=== PATIENT | female | born 1995 | race Caucasian/White ===

== ENCOUNTER 2023-04-07 14:45 | Outpatient (OUT) | payer BC, OTHER, SELFPAY ==
--- NOTE | 2023-04-07 14:48 | US_ITS ---
The [address] [address] Patient Name: NICOLE GALE MRN: [id number] date: 1995 Sex: F Assigned Patient Location: US Current Patient Location: US Accession/Order Number: [id number] Exam Date: 04/07/2023 14:50 Report Date: 04/07/2023 15:58 At the request of: OJ VERAS Procedure: US pelvis transvaginal Examinations: Transvaginal pelvic ultrasound with Doppler on 04/07/2023 2:50 PM EST Clinical Information: Pelvic pain status post IUD placement Comparison: None. FINDINGS: The anteverted uterus measures 8.9 x 3.9 x 4.6 cm. The uterus has a homogeneous echotexture without focal mass . Endometrial stripe is within normal limits for patient's age and measures 9 mm maximal thickness. IUD noted in place. The right ovary measures 4.1 x 2.9 x 3.6 cm and contains a simple cyst measuring up to 3.4 cm, well delineated. No dedicated follow-up is indicated per the 2019 [employer] in Ultras[employer] consensus statement. The left ovary is not visualized. Given the patient's symptoms, color Doppler and duplex interrogation was performed demonstrating arterial and venous flow to the right ovary. Urinary bladder shows no gross abnormality. There is no free fluid or suspicious adnexal mass. US/US pelvis transvaginal IMPRESSION: 1. IUD noted in place. 2. Nonvisualization of the left ovary. 3. Otherwise essentially unremarkable exam as described. Electronically authenticated by: LONA WATERMAN Date: 04/07/2023 15:58
== END 2023-04-07 14:46 | disposition home or self-care (01) ==
LOC: US 14:45
PROVIDERS: Visit Provider Nurse Practitioner
DX: R10.2 Pelvic and perineal pain (principal); T83.84XA Pain due to genitourinary prosthetic devices, implants and grafts, initial encounter
CPT/HCPCS: 76830

== ENCOUNTER 2023-12-02 19:11 | Emergency (ER) | payer OTHER, SELFPAY ==
[2023-12-02 19:17] VITALS: BP 137/92; PULSE 80; TEMP 36.4; O2SAT 99; BMI 26.5
--- OUTSIDE RECORDS SUMMARY | 2023-12-02 19:23 | XMS_ITS | CCD ---
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 motor strength equal & normal bilaterally, sensation equal & normal bilaterally, speech normal Assessment/Plan 1. Swollen gland (R59.9: Enlarged lymph nodes, unspecified) Discussed with patient when lymphadenopathy may occur Encouraged to continue ibuprofen or acetaminophen for discomfort Encouraged to contact dentist f/u as needed Ordered: amoxicillin, 500 mg = 1 cap(s), Oral, q12hr, X 7 day(s), # 14 cap(s), Refills(s) 0, Pharmacy: [facility]/pharmacy #[id number], 172, cm, 05/29/23 11:51:00 EST, Height/Length Dosing, 84, kg, 05/29/23 11:51:00 EST, Weight Dosing 2. Tooth abscess (K04.7: Periapical abscess without sinus) Discussed with patient when lymphadenopathy may occur Encouraged to continue ibuprofen or acetaminophen for discomfort Encouraged to contact dentist f/u as needed Ordered: amoxicillin, 500 mg = 1 cap(s), Oral, q12hr, X 7 day(s), # 14 cap(s), Refills(s) 0, Pharmacy: [facility]/pharmacy #[id number], 172, cm, 05/29/23 11:51:00 EST, Height/Length Dosing, 84, kg, 05/29/23 11:51:00 EST, Weight Dosing 3. BMI 28.0-28.9,adult (Z68.28: Body mass index [BMI] 28.0-28.9, adult) The standard range for ages 18 and older is >=18.5 and < 25 kg/m2. Your BMI today was above this range, this falls in the overweight to obese category and there are medical benefits to weight loss. We can offer counselling, referral, and/or medical support in addressing this problem. Your BMI and weight management will be followed at subsequent visits. Ordered: amoxicillin, 500 mg = 1 cap(s), Oral, q12hr, X 7 day(s), # 14 cap(s), Refills(s) 0, Pharmacy: [facility]/pharmacy #[id number], 172, cm, 05/29/23 11:51:00 EST, Height/Length Dosing, 84, kg, 05/29/23 11:51:00 EST, Weight Dosing Follow-up No qualifying data available Patient Education Dental Abscess, Clvb-ss-Jsaz Lymphadenopathy Problem List/Past Medical History Ongoing Absence of aortic valve leaflet Anxiety Asthma, exercise induced Bicuspid aortic valve BMI 24.0-24.9, adult BMI 28.0-28.9,adult Bronchitis with wheezing Cervical cancer screening Cold sore Encounter for IUD insertion Encounter for routine checking of intrauterine contraceptive device (IUD) Insect bites Intrauterine contraceptive device in situ Left knee pain Left knee sprain Low back pain Menorrhagia Oral herpes simplex infection Radiculopathy Sinusitis Smoker Well woman exam Historical Adult BMI 28.0-28.9 kg/sq m Adult BMI 29.0-29.9 kg/sq m Adult BMI 30.0-30.9 kg/sq m Class 1 obesity with body mass index (BMI) of 30.0 to 30.9 in adult Procedure/Surgical History Tonsillectomy and adenoidectomy (2001). Medications albuterol HFA 90 mcg/inh MDI, 2 puff(s), Inhalation, q4hr, PRN amoxicillin 500 mg Cap, 500 mg= 1 cap(s), Oral, q12hr Mirena 52 mg intrauteral device, 52 mg= 1 EA, IntraUteral, Once triamcinolone Top 0.1% Oint, 1 donaldo, Topical, TID valacyclovir 1 g Tab, See Instructions, 4 refills Allergies No Known Medication Allergies Social History Alcohol Current, Beer, Wine, Liquor, 3-5 times per week, 1 drinks/episode average. 2.00 drinks/episode maximum. Started age 23 Years. Previous treatment: None. Alcohol use interferes with work or home: No. Drinks more than intended: No. Others hurt by drinking: No. Ready to change: No., 05/10/2019 Substance Abuse - Denies Substance Abuse, 05/10/2019 Tobacco - Low Risk, 04/08/2022 Former smoker, quit more than 30 days ago Tobacco Use:. Current vaping or e-cigarette use Smokeless Tobacco Use:. Vaping, Ready to c (more content not included)... Normal [facility] Comment on above: Result Comment: Elec tronically Signed By: JOEY CALDERON CNP\.luis e\Date and Time Signed: 05/29/23 12:24 EST Patient Educationon 05-29-19 Patient Education Dentistry Dental Abscess A dental abscess is an area of pus in or around a tooth. It comes from an infection. It can cause pain and other symptoms. Treatment will help with symptoms and prevent the infection from spreading. What are the causes? This condition is caused by an infection in or around the tooth. This can be from: ? Very bad tooth decay (cavities). ? A bad injury to the tooth, such as a broken or chipped tooth. What increases the risk? The risk to get an abscess is higher in males. It is also more likely in people who: ? Have dental decay. ? Have very bad gum disease. ? Eat sugary snacks between meals. ? Use tobacco. ? Have diabetes. ? Have a weak disease-fighting system (immune system). ? Do not brush their teeth regularly. What are the signs or symptoms? Some mild symptoms are: ? Tenderness. ? Bad breath. ? Fever. ? A sharp, sour taste in the mouth. ? Pain in and around the infected tooth. Worse symptoms of this condition include: ? Swollen neck glands. ? Chills. ? Pus draining around the tooth. ? Swelling and redness around the tooth, the mouth, or the face. ? Very bad pain in and around the tooth. The worst symptoms can include: ? Difficulty swallowing. ? Difficulty opening your mouth. ? Feeling like you may vomit or vomiting. How is this treated? This is treated by getting rid of the infection. Your dentist will discuss ways to do this, including: ? Antibiotic medicines. ? Antibacterial mouth rinse. ? An incision in the abscess to drain out the pus. ? A root canal. ? Removing the tooth. Follow these instructions at home: Medicines ? Take mjrb-eug-sdnlxmd and prescription medicines only as told by your dentist. ? If you were prescribed an antibiotic medicine, take it as told by your dentist. Do not stop taking it even if you start to feel better. ? If you were prescribed a gel that has numbing medicine in it, use it exactly as told. ? Ask your dentist if you should avoid driving or using machines while you are taking your medicine. General instructions ? Rinse your mouth often with salt water. To make salt water, dissolve ??1 tsp (3?6 g) of salt in 1 cup (237 mL) of warm water. ? Eat a soft diet while your mouth is healing. ? Drink enough fluid to keep your pee (urine) pale yellow. ? Do not apply heat to the outside of your mouth. ? Do not smoke or use any products that contain nicotine or tobacco. If you need help quitting, ask your dentist. ? Keep all follow-up visits. Prevent an abscess ? [place] your teeth every morning and every night. Use fluoride toothpaste. ? Floss your teeth each day. ? Get dental cleanings as often as told by your dentist. ? Think about getting dental sealant put on teeth that have deep holes (decay). ? Drink water that has fluoride in it. ? Most tap water has fluoride. ? Check the label on bottled water to see if it has fluoride in it. ? Drink water instead of sugary drinks. ? Eat healthy meals and snacks. ? Wear a mouth guard or face shield when you play sports. Contact a doctor if: ? Your pain is worse and medicine does not help. Get help right away if: ? You have a fever or chills. ? Your symptoms suddenly get worse. ? You have a very bad headache. ? You have problems breathing or swallowing. ? You have trouble opening your mouth. ? You have swelling in your neck or close to your eye. These symptoms may be an emergency. Get help right away. Call your local emergency services (911 in the [place] ? Do not wait to see if the symptoms will go away. ? Do not drive yourself to the hospital. Summary ? A dental abscess is an area of pus in or around a tooth. It is caused by an infection. ? Treatment will help with symptoms and prevent the infection from spreading. ? Take zrvb-grq-opnnqap and prescription medicines only as told by your dentist. ? To prevent an abscess, take good care of your teeth. [place] your teeth every morning and night. Use floss every day. ? Get dental cleanings as often as told by your dentist. This information is not intended to replace advice given to you by your health care provider. Make sure you discuss any questions you have with your health care provider. Document Revised: 05/17/2021 Document Reviewed: 05/17/2021 [employer] Patient Education ? 2022 [employer] Infectious Disease Lymphadenopathy Lymphadenopathy means that your lymph glands are swollen or larger than normal. Lymph glands, also called lymph nodes, are collections of tissue that filter excess fluid, bacteria, viruses, and waste from your bloodstream. They are part of your body's disease-fighting system (immune system), which protects your body from germs. There may be different causes of lymphadenopathy, depending on where it is in your body. Some types go away on their own. Lymphadenopathy can occur anywhere that you have lymph glands, (more content not included)... Normal [facility] ECG 12-Leadon 04-28-2023 ECG 12-Lead [id number]# 1.00TIFF Normal [facility] Heart and Vascular Office/Cl inic Noteon 04-28-2023 Heart and Vascular Office/Clinic Note Chief Complaint here to establish care History of Present Illness Nicole Gale is a 27-year-old female who presents today for a new patient evaluation. The patient is doing well. She was born with a heart murmur. She is unsure if her heart murmur has resolved or not. The last time she saw a labor relations teacher was 5 years ago for a cardiac MRl. She has worn a Holter monitor 5 years ago. She denies chest pain, swelling, palpitations, or irregular heartbeat. She was very active in high school and had an athletic induced asthma. She has continuous symptoms of asthma. She experiences dyspnea on exertion, particularly doing long cardio exercises at the gym. She is supposed to have an appointment with a labor relations teacher every 2 years. Review of Systems Constitutional: no fever, no sweats, no weakness Skin: no rash, no lesions, no bruising/petechiae ENMT: no sore throat, no congestion, no hoarseness Respiratory: Positive for shortness of breath, positive for asthma, no cough, no orthopnea, no wheezing Cardiovascular: no chest pain, no palpitations, no edema Gastrointestinal: no nausea, no vomiting, no diarrhea, no GI bleeding Genitourinary: no anuria/oliguria no hematuria Musculoskeletal: no back pain, no trauma Neurologic: no headache, no dizziness, no numbness, no weakness Psychiatric: no sleeping problems, no irritability, no anxiety/depression. Heme/Lymph: no bleeding tendency, no bruising tendency Allergy/Immunologic: no recurrent infections, no impaired immunity Additional ROS info: Except as noted in the above Review of Systems and in the History of Present Illness all other systems have been reviewed and are negative or noncontributory Physical Exam Vitals & Measurements HR: 79(Peripheral) BP: 118/68 SpO2: 100% HT: 68 in HT: 172 cm WT: 84.1 kg WT: 185.02 lb BMI: 28.43 General: alert, no acute distress Skin: warm, dry intact Head: atraumatic, normocephalic Neck: trachea midline, no JVD, no bruit Eye: normal conjunctiva, sclera clear ENMT: oral mucosa moist Cardiovascular: She has multiple extra beats and a diastolic murmur and a loud P2. Respiratory: lungs CTA, respirations non labored Chest wall: no deformity. Gastrointestinal: soft, non-distended, no tenderness, no guarding. Back: no tenderness, normal ROM, normal alignment. Extremities: no edema, no deformity, no trauma Neurological: oriented x 4, LOC appropriate for age, sensation equal & normal bilaterally, speech normal Psychiatric: cooperative, affect appropriate for age, normal judgement, normal psychiatric thoughts. Assessment/Plan 1. Aortic Valve Disease Nicole Gale is a 27-year-old female with a history of congenital aortic valve disease of unclear etiology. It was previously considered as unicuspid aortic valve, but appeared to be bicuspid aortic valve on MRI 5 years ago. She is doing well, but had not recently followed up. She needs a reassessment. We will get a transthoracic echo and a 48-hour Holter monitor as EKG has some PACs and auscultation. On exam, she has multiple extra beats. Additionally, I do hear a diastolic murmur and a loud P2. Follow up in 6 weeks in [place]. Documentation services were performed after patient or guardian consented to allow [employer] to record this visit. PATRICIA geospatial specialist and provider reviewed before signing. PATRICIA: Phoebe Roberta Oseo. Portions of this record may have been created with voice recognition artificial intelligence software, specifically [employer], [employer] and or [employer]. Substitutions may have occurred due to the inherent limitations of voice recognition and artificial intelligence software. Follow-up No qualifying data available Problem List/Past Medical History Ongoing Absence of aortic valve leaflet Anxiety Asthma, exercise induced Bicuspid aortic valve BMI 24.0-24.9, adult Bronchitis with wheezing Cervical cancer screening Cold sore Encounter for IUD insertion Encounter for routine checking of intrauterine contraceptive device (IUD) Insect bites Left knee pain Left knee sprain Low back pain Menorrhagia Oral herpes simplex infection Radiculopathy Sinusitis Smoker Well woman exam Historical Adult BMI 28.0-28.9 kg/sq m Adult BMI 29.0-29.9 kg/sq m Adult BMI 30.0-30.9 kg/sq m Class 1 obesity with body mass index (BMI) of 30.0 to 30.9 in adult Procedure/Surgical History Tonsillectomy and adenoidectomy (2001). Medications albuterol HFA 90 mcg/inh MDI, 2 puff(s), Inhalation, q4hr, PRN Mirena 52 mg intrauteral device, 52 mg= 1 EA, IntraUteral, Once triamcinolone Top 0.1% Oint, 1 donaldo, Topical, TID valacyclovir 1 g Tab, See Instructions, 4 refills Allergies No Known Medication Allergies Social History Alcohol Current, Beer, Wine, Liquor, 3-5 times per week, 1 drinks/episode average. 2.00 drinks/episode maximum. Started age 23 Years. Previous treatment: None. Alcohol use interferes with (more content not included)... [facility] Comment on above: Result Comment: Elec tronically Signed By: Pieter Ying MD\.br\Date and Time Signed: 04/28/23 09:29 EST\.br\Electronically Co-Signed By: Anuja Carvalho\.br\Date and Time Co-Signed: 04/25/23 16:33 EST Physician Orderon 04-28-2023 Physician Order [id number]# 1.00TIFF [facility] Ambulatory Visit Summaryon 0 04-25-2023 Ambulatory Visit Summary NICOLE GALE :1995 Visit Date:04/25/2023 Ambulatory Visit Instructions Your Diagnosis Angina of effort Your Care Team Attending Physician - Pieter Ying MD Primary Care Physician - Monique Navarro Referring Physician - Monique Navarro This Is Your Medications List albuterol (albuterol HFA 90 mcg/inh MDI) levonorgestrel (Mirena 52 mg intrauteral device) triamcinolone topical (triamcinolone Top 0.1% Oint) valacyclovir (valacyclovir 1 g Tab) Procedures Performed Tonsillectomy and adenoidectomy (2001). Discharge Vitals Heart Rate (Peripheral) 79 Blood Pressure 118/68 Height 172 cm Height 68 in Weight 84.1 kg Weight 185.02 lb BMI 28.43 What to do next Scheduled Follow-Up Appointments Friday 1:15 PM EDT With: Deonna FELDMAN, Pieter Li Where: [facility] [place] Medications What How Much When Instructions Unchanged albuterol (albuterol HFA 90 mcg/ inh MDI) 2 Puffs Inhalation Every 4 hours as needed for for wheezing Unchanged levonorgestrel (Mirena 52 mg intrauteral device) 1 Each Intrauteral Once Duration: 1 Doses Unchanged triamcinolone topical (triamcinolone Top 0.1% Oint) 1 Application Topical 3 times a day Unchanged valacyclovir (valacyclovir 1 g Tab) See instructions TAKE 2 TABLETS BY MOUTH TWICE A DAY FOR 1 DAY Allergies No Known Medication Allergies Problems Ongoing - Any problem that you are currently receiving treatment for. Absence of aortic valve leaflet Anxiety Asthma, exercise induced Bicuspid aortic valve BMI 24.0-24.9, adult Bronchitis with wheezing Cervical cancer screening Cold sore Encounter for IUD insertion Encounter for routine checking of intrauterine contraceptive device (IUD) Insect bites Left knee pain Left knee sprain Low back pain Menorrhagia Oral herpes simplex infection Radiculopathy Sinusitis Smoker Well woman exam Historical - Any problem that you are no longer receiving treatment for. Adult BMI 28.0-28.9 kg/sq m Adult BMI 29.0-29.9 kg/sq m Adult BMI 30.0-30.9 kg/sq m Class 1 obesity with body mass index (BMI) of 30.0 to 30.9 in adult Patient Survey You may receive a survey via text or e-mail asking about your office visit. Please share your experience with us by completing your survey. We appreciate your feedback and thank you for choosing us for your care. [facility] Ambulatory Visit Summary NICOLE GALE :1995 Visit Date:04/25/2023 Ambulatory Visit Instructions Your Diagnosis BMI 28.0-28.9,adult Former smoker Your Care Team Attending Physician - Monique Navarro Primary Care Physician - Monique Navarro This Is Your Medications List albuterol (albuterol HFA 90 mcg/inh MDI) levonorgestrel (Mirena 52 mg intrauteral device) triamcinolone topical (triamcinolone Top 0.1% Oint) valacyclovir (valacyclovir 1 g Tab) Procedures Performed Tonsillectomy and adenoidectomy (2001). Discharge Vitals Heart Rate (Peripheral) 78 Respiratory Rate 18 Blood Pressure 110/80 Height 172 cm Height 68 in Weight 84.9 kg Weight 186.78 lb BMI 28.7 Medications What How Much When Instructions Unchanged albuterol (albuterol HFA 90 mcg/ inh MDI) 2 Puffs Inhalation Every 4 hours as needed for for wheezing Unchanged levonorgestrel (Mirena 52 mg intrauteral device) 1 Each Intrauteral Once Duration: 1 Doses Unchanged triamcinolone topical (triamcinolone Top 0.1% Oint) 1 Application Topical 3 times a day Unchanged valacyclovir (valacyclovir 1 g Tab) See instructions TAKE 2 TABLETS BY MOUTH TWICE A DAY FOR 1 DAY Allergies No Known Medication Allergies Problems Ongoing - Any problem that you are currently receiving treatment for. Absence of aortic valve leaflet Anxiety Asthma, exercise induced Bicuspid aortic valve BMI 24.0-24.9, adult Bronchitis with wheezing Cervical cancer screening Cold sore Encounter for IUD insertion Insect bites Left knee pain Left knee sprain Low back pain Menorrhagia Oral herpes simplex infection Radiculopathy Sinusitis Smoker Well woman exam Historical - Any problem that you are no longer receiving treatment for. Adult BMI 28.0-28.9 kg/sq m Adult BMI 29.0-29.9 kg/sq m Adult BMI 30.0-30.9 kg/sq m Class 1 obesity with body mass index (BMI) of 30.0 to 30.9 in adult Patient Survey You may receive a survey via text or e-mail asking about your office visit. Please share your experience with us by completing your survey. We appreciate your feedback and thank you for choosing us for your care. [facility] [place] 04-25-2023 Consent [id number] .00TIFF [facility] Family Medicine Office/Clini c Noteon 04-25-2023 Family Medicine Office/Clinic Note HPI Staff Nicole is a 27 year old female presenting for IUD String check pt had Mirana placed on 03/21/23 and is here to have string checked. Pt states she has been feeling good and denies any pain or discomfort. History of Present Illness pt presents today for IUD string check Review of Systems PHQ Score Initial Depression Screen Score: 0 SCORE ROS - Provider Constitutional: no fever, no chills, no sweats, no fatigue Respiratory: no shortness of breath, no cough, no orthopnea, no wheezing. Cardiovascular: no chest pain, no palpitations, no edema. Neurologic: no headache, no dizziness, no numbness, no weakness. Physical Exam Vitals & Measurements HR: 78(Peripheral) RR: 18 BP: 110/80 SpO2: 99% HT: 68 in HT: 172 cm WT: 84.9 kg WT: 186.78 lb BMI: 28.7 General: alert, no acute distress ENMT: oral mucosa moist, no pharyngeal erythema or exudate Cardiovascular: regular rate and rhythm, normal peripheral perfusion Respiratory: Lungs CTA, respirations non labored Extremities: no deformity, no trauma Neurological: oriented x 4, LOC appropriate for age, CN II-XII intact, motor strength equal & normal bilaterally, speech normal IUD strings visible strings do not need trimmed Assessment/Plan 1. Encounter for routine checking of intrauterine contraceptive device (IUD) (Z30.431: Encounter for routine checking of intrauterine contraceptive device) IUD strings in place. U/S results reviewed. pt states the cramping is no longer an issue. and she is just having minimal spotting. RTC as needed 2. BMI 28.0-28.9,adult (Z68.28: Body mass index [BMI] 28.0-28.9, adult) BMI education complete 3. Former smoker (Z87.891: Personal history of nicotine dependence) continue not smoking Follow-up No qualifying data available Problem List/Past Medical History Ongoing Absence of aortic valve leaflet Anxiety Asthma, exercise induced Bicuspid aortic valve BMI 24.0-24.9, adult Bronchitis with wheezing Cervical cancer screening Cold sore Encounter for IUD insertion Encounter for routine checking of intrauterine contraceptive device (IUD) Insect bites Left knee pain Left knee sprain Low back pain Menorrhagia Oral herpes simplex infection Radiculopathy Sinusitis Smoker Well woman exam Historical Adult BMI 28.0-28.9 kg/sq m Adult BMI 29.0-29.9 kg/sq m Adult BMI 30.0-30.9 kg/sq m Class 1 obesity with body mass index (BMI) of 30.0 to 30.9 in adult Procedure/Surgical History Tonsillectomy and adenoidectomy (2001). Medications albuterol HFA 90 mcg/inh MDI, 2 puff(s), Inhalation, q4hr, PRN Mirena 52 mg intrauteral device, 52 mg= 1 EA, IntraUteral, Once triamcinolone Top 0.1% Oint, 1 donaldo, Topical, TID valacyclovir 1 g Tab, See Instructions, 4 refills Allergies No Known Medication Allergies Social History Alcohol Current, Beer, Wine, Liquor, 3-5 times per week, 1 drinks/episode average. 2.00 drinks/episode maximum. Started age 23 Years. Previous treatment: None. Alcohol use interferes with work or home: No. Drinks more than intended: No. Others hurt by drinking: No. Ready to change: No., 05/10/2019 Substance Abuse - Denies Substance Abuse, 05/10/2019 Tobacco - Low Risk, 04/08/2022 Former smoker, quit more than 30 days ago Tobacco Use:. Never, Current vaping or e-cigarette use Smokeless Tobacco Use:. Cigarettes, Vaping, Ready to change: No. Household tobacco concerns: No. Yes, 04/25/2023 Family History ADHD: Brother. Bipolar: Sister. Thyroid condition: Mother. Immunizations Vaccine Date Status Comments influenza virus vaccine, inactivated - Not Given Patient Refuses influenza virus vaccine, inactivated - Not Given Patient Refuses SARS-CoV-2 (COVID-19) mRNA BNT-162b2 vax 09/14/2020 Recorded SARS-CoV-2 (COVID-19) mRNA BNT-162b2 vax 08/24/2020 Recorded influenza virus vaccine, live, trivalent - Not Given Patient Refuses diphtheria/pertussis, acel/tetanus adult 01/03/2010 Recorded meningococcal conjugate vaccine 01/03/2010 Recorded human papillomavirus vaccine 01/03/2010 Recorded poliovirus vaccine, inactivated 06/07/2002 Recorded DTaP, unspecified formulation 06/07/2002 Recorded varicella virus vaccine 08/11/2001 Recorded measles/mumps/rubella virus vaccine 08/11/2001 Recorded Normal [facility] Comment on above: Result Comment: Elec tronically Signed By: Iwona FONSECA, Monique Clement\.br\Date and Time Signed: 04/25/23 14:19 EST RAD - Ultrasound Reporton RAD - Ultrasound Report [id number]. 00TIFF Normal [facility] Physician Orderon 04-02-2023 Physician Order [id number] .00TIFF Normal [facility] Ambulatory Visit Summaryon 1 Ambulatory Visit Summary NICOLE GALE :1995 Visit Date:03/21/2023 Ambulatory Visit Instructions Your Diagnosis Encounter for IUD insertion BMI 29.0-29.9,adult Vaping nicotine dependence, tobacco product Your Care Team Attending Physician - Monique Navarro Primary Care Physician - Monique Navarro This Is Your Medications List albuterol (albuterol HFA 90 mcg/inh MDI) triamcinolone topical (triamcinolone Top 0.1% Oint) valacyclovir (valacyclovir 1 g Tab) Procedures Performed Tonsillectomy and adenoidectomy (2001). What to do next Scheduled Follow-Up Appointments Friday 1:40 PM EST With: Monique Navarro Where: [facility] Family Medicine [place] Normal [facility] Reminderson 03-06-2023 Reminders - From: Monique Navarro To: [facility] - Clinical; Sent: 03/05/2023 13:08:41 EST Show up: 03/05/2023 13:09:00 EST Subject: Ambulatory Reminder Due Date/Time: 03/06/2023 13:08:00 EST Let nicole know her pap results were negative Results: Date Result Name Value 02/27/2023 8:50 PAP Note notified patient of message below Normal [facility] PAP [id number] 03-04-2023 Cytology report Cyto stain Doc (Cvx/Vag) Note Invalid Interpretation Code [facility]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 pressure 124 mm[Hg] Anastasia GOMES [facility] Encounters Encounter Date Encounter Type Care Provider Facility Start: 06-13-2023 End: 06-13-2023 ambulatory Pieter Ying Facility:[facility] Start: 06-13-2023 End: 06-13-2023 Patient encounter procedure Pieter Ying [facility] Start: 06-06-2023 End: 06-06-2023 ambulatory Pieter Ying Facility:[facility] Start: 06-06-2023 End: 06-06-2023 Patient encounter procedure Pieter Ying [facility] Start: 05-29-2023 End: 05-29-2023 ambulatory Pieter Ying Facility:[facility] Start: 05-29-2023 End: 05-29-2023 Patient encounter procedure Pieter Ying [facility] Start: 05-29-2023 End: 05-29-2023 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 Facility:[facility] [place] Start: 04-25-2023 End: 04-25-2023 Patient encounter procedure Pieter Ying [facility] Start: 04-25-2023 End: 04-25-2023 ambulatory Monique L Iwona Facility:[facility] Start: 03-21-2023 End: 03-21-2023 ambulatory Monique L Iwona Facility:[facility] [place] Start: 02-27-2023 End: 02-27-2023 Lab Drop off Monique L Iwona [facility] Start: 02-27-2023 End: 02-27-2023 ambulatory Monique L Iwona Facility:[facility] Start: 02-05-2023 End: 02-05-2023 ambulatory Monique L Iwona Facility:[facility] [place] Start: 01-31-2023 End: 01-31-2023 ambulatory Monique L Iwona Facility: [facility] Start: 05-01-2022 End: 05-01-2022 Patient encounter procedure NATHALIE Chaidez MARIANNGER [facility] Start: 04-08-2022 End: 04-08-2022 Patient encounter procedure NATHALIE Chaidez SIDEGER [facility] [place] Start: 02-19-2022 End: 02-19-2022 Patient encounter procedure NATHALIE Chaidez SIDEGER [facility] Start: 12-13-2021 ambulatory Provider Pending Facili ty: Start: 12-06-2021 End: 12-06-2021 Patient encounter procedure Elaine Nicholson [facility] Start: 11-02-2021 End: 11-02-2021 Patient encounter procedure Elaine Nicholson [facility] Start: 10-25-2021 End: 10-25-2021 ambulatory Wood Olexa Other [facility] Other Start: 10-25-2021 Office outpatient visit 25 minutes Wood Olexa [facility] Start: 10-04-2021 End: 10-04-2021 ambulatory Wood Olexa Other [facility] Other Start: 10-04-2021 Office outpatient visit 25 minutes Wood Olexa [facility] Start: 09-26-2021 End: 09-26-2021 ambulatory Wood Olexa Other [facility] Other Start: 09-26-2021 Telephone encounter Wood Olexa [facility] Start: 09-18-2021 End: 09-18-2021 ambulatory Wood Olexa Other [facility] Other Start: 09-18-2021 Office outpatient ne w 30 minutes Wood Olexa [facility] Start: 09-13-2021 End: 09-13-2021 Patient encounter procedure Yandy Anand [facility] Start: 09-11-2021 End: 09-11-[address] VIMAL MONIQUE Facility:[facility] Start: 08-23-2021 End: 08-23-2021 Patient encounter procedure Anastasia GOMES [facility] Start: 11-22-2016 Ambulatory AUDIE VALERIO Facility :3 Procedures Date Procedure Procedure Detail Performing Clinician Start: 03-24-2001 Tonsillectomy and adenoidectomy Anastasia GOMES Immunizations Immunization Date Immunization Notes Care Provider Nina barbosa 09-14-2020 SARS-CoV-2 (COVID-19 ) mRNA BNT-162b2 vax Anastasia ALONSOEL [facility] 08-24-2020 SARS-CoV-2 (COVID-19 ) mRNA BNT-162b2 vax Anastasia GOMES [facility] 01-03-2010 HPV, unspecified formulation Anastasia GOMES [facility] 01-03-2010 meningococcal ACWY vaccine, unspecified formulation Anastasiarj GOMES [facility] 01-03-2010 tetanus toxoid, redu clarke diphtheria toxoid, and acellular pertussis vaccine, adsorbed Anastasia GOMES [facility] 06-07-2002 DTaP, unspecified formulation Anastasia GOMES [facility] 06-07-2002 poliovirus vaccine, unspecified formulation Anastasia GOMES [facility] 08-11-2001 measles, mumps and rubella virus vaccine Anastasia ALONSOEL [facility] 08-11-2001 varicella virus vaccine Olivia mart LeukoDxSATISH [facility] NEGATED: Highlighted row has not occurred!04-08-2022 influenza virus vaccine, unspecified formulation NATHALIE ROUSE [facility] [place] NEGATED: Highlighted row has not occurred!08-23-2021 influenza virus vaccine, unspecified formulation Anastasia GOMES [facility] NEGATED: Highlighted row has not occurred!05-10-2019 influenza virus vaccine, live, attenuated, for intranasal use Anastasia GOMES [facility] Payers Date Payer Category Payer Unknown [id number] 1995 Unknown [id number] 2.16.84 [id number] 1997 Unknown [id number] 2.16. [id number] 1997 Unknown [id number] 2.16.8 [id number] 1997 Unknown [id number] 2.16.8 [id number] 1997 Unknown [id number] 2.16.8 [id number] 1997 Unknown [id number] 2.16.8 [id number] 1997 Unknown [id number] 2.16.8 [id number] 1997 Unknown [id number] 2.16.8 [id number] 1997 Unknown [id number] 2.16.8 [id number] 1997 Unknown [id number] 2.16.8 [id number] 1997 Unknown [id number] 2.16.8 [id number] 1997 Unknown [id number] 2.16.8 [id number] 1997 Unknown [id number] 2.16.8 [id number] 1959 Unknown [id number] Social History Date Type Detail Facility Start: 06-14-2019 End: 02-27-2023 Tobacco smoking status Light tobacco smoker (finding) [facility] Tobacco smoking status Never Khris [facility] Sex Assigned At Female [facility] Start: 04-25-2023 End: 05-29-2023 Tobacco smoking status Ex-smoker (finding) [facility] Functional Status Date Assessment Result Facility 06-13-2023 Functional Status N/A [facility] 04-25-2023 Functional Status N/A [facility] 04-08-2022 Functional Status N/A [facility] [place] 02-19-2022 Functional Status N/A [facility] 09-13-2021 Functional Status N/A [facility] Clinical Notes 08-23-2021 to 07-01-2023 Note Date & Type Note Facility 07-01-2023 Note Holter Monitor PROCEDURE: 48-hour Holter monitor. REFERRING PHYSICIAN: Pieter Ying M.D. INDICATIONS: Premature atrial complexes. PROCEDURE DETAILS: The patient was recorded for 2 days capturing an average heart rate of 90 beats per minute, minimum heart rate of 56 beats per minute, and maximum heart rate of beats per minute. There were no ectopic beats. The patient had tachycardia 4.78% of the time. There was no atrial fibrillation or atrial flutter. CONCLUSIONS: Normal Holter monitor. Clinical correlation suggested. READ BY: Pieter Ying M.D. ca Dictated: 06/24/2023 [id number] Transcribed: 06/29/2023 [facility] Comment on above: Result Comment: Elec tronically Signed By: Pieter Ying MD\.br\Date and Time Signed: 07/01/23 08:16 EDT 06-03-2023 Note Echocardiology Procedure Exam Date/Time Accession # [id number] Echo Transthoracic 05/29/2023 15:56 EST [id number] Pieter Ying MD CPT code [id number] Reason for Exam (Echo Transthoracic Complete) Congenital insufficiency of aortic valve;Other (please specify) Report Version: 1 Study ID: [id number] [facility] [address] [place] [address] Adult Echocardiogram Report Name: NICOLE GALE Study Date: 05/29/2023, 3: 02 PM Patient Location: [facility] : 1995 (MM/DD/YYYY) Gender: Female Age: 27 Years Height: 172.72 cm BP: 112 / 55 mmHg Weight: 84.823 kg HR: 55 bpm BSA: 1.99 m? Ordering Physician: Pieter Ying Referring Physician: Pieter Ying Performed By: Rajani Kruger CHRSI Reason For Study: Bicuspid AoV History: Bicuspid AoV, AI, Murmur, Smoker Interpretation Summary Ejection Fraction = 60-65%. Normal LV and RV. Bicuspid aortic valve with mild AI and no . Normal estimated PA pressure. Normal diastolic filling pattern. Procedure A complete two-dimensional transthoracic echocardiogram was performed (2D, M-mode, spectral and color flow Doppler). Study quality is good. Left Ventricle The left ventricle is normal in size. There is normal left ventricular wall thickness. Ejection Fraction = 60-65%. The left ventricular wall motion is normal. Normal diastolic function. Left Atrium The left atrial size is normal. Echocardiology Report Right Atrium Right atrial size is normal. Right Ventricle The right ventricular systolic function is normal. The right ventricle is normal size. The right ventricular wall motion is normal. Aortic Valve The aortic valve is bicuspid. Mild aortic regurgitation. There is no aortic stenosis. Mitral Valve The mitral valve is normal in structure and function. There is no mitral regurgitation noted. No mitral valve stenosis. Tricuspid Valve Structurally normal tricuspid valve. No evidence of tricuspid regurgitation. Pulmonic Valve No evidence of stenosis. There is no pulmonic valve regurgitation. Arteries The aortic root is normal in size. Normal ascending aorta. Pulmonary artery diameter is normal. Venous The inferior vena cava is normal in size, and collapses normally with respiration. Effusion There is no pericardial effusion. Left Ventricle IVSd: 1.00 cm LVIDd: 4.0 cm LVPWd: 1.15 cm LVIDs: 2.8 cm EDV(MOD-sp4): 120.0 ml LVLd ap4: 9.5 cm ESV(MOD-sp4): 36.2 ml LVLs ap4: 7.7 cm EDV(MOD-sp2): 103.0 ml LVLd ap2: 9.3 cm ESV(MOD-sp2): 33.0 ml LVLs ap2: 7.9 cm Right Ventricle TAPSE: 2.34 cm Aortic Valve LVOT diam: 2.45 cm AI max jose: 453.0 cm/sec AI max P.1 mmHg AI dec slope: 223.0 cm/sec? LV V1 max: 79.3 cm/sec LV V1 max P.5 mmHg Ao max P.6 mmHg Ao V2 max: 170.6 cm/sec Tricuspid Valve TR max P.3 mmHg TR max jose: 230.8 cm/sec Aorta Ao root diam: 2.40 cm Ao Sinus of Valsalva: 2.24 cm Ao Sinotubular Junction: 1.94 cm Atria LA dimension: 3.1 cm Diastolic funtion Med Peak E' Jose: 15.9 cm/sec Lat Peak E' Jose: 14.7 cm/sec Echocardiology Report MV dec time: 0.19 sec MV E max jose: 96.1 cm/sec MV A max jose: 44.1 cm/sec AI dec slope: 223.0 cm/sec? AI max P.1 mmHg AI max jose: 453.0 cm/sec AI P1/2t: 595.0 msec Ao max P.6 mmHg Ao root area: 4.5 cm? Ao root diam: 2.40 cm Ao Sinus of Valsalva: 2.24 cm Ao Sinotubular Junction: 1.94 cm Ao V2 max: 170.6 cm/sec AV VR: 0.46 DAPHNE(V,D): 2.19 cm? EDV(MOD-sp4): 120.0 ml EDV(Teich): 68.1 ml EF(MOD-sp4): 69.8 % EF(Teich): 57.0 % ESV(MOD-sp4): 36.2 ml ESV(Teich): 29.3 ml FS: 29.4 % IVC Diam: 1.42 cm IVSd: 1.00 cm LA dimension: 3.1 cm LV V1 max: 79.3 cm/sec LV V1 max P.5 mmHg LVIDd: 4.0 cm LVIDs: 2.8 cm LVLd ap4: 9.5 cm LVLs ap4: 7.7 cm LVOT area: 4.7 cm? LVOT diam: 2.45 cm LVPWd: 1.15 cm MV A max jose: 44.1 cm/sec MV dec time: 0.19 sec MV E max jose: 96.1 cm/sec MV E/A: 2.18 RAP systole: 3.0 mmHg RVDd: 3.4 cm RVIDd/LVIDd: 0.87 RVSP(TR): 24.3 mmHg SV(MOD-sp4): 83.8 ml TAPSE: 2.34 cm TR max P.3 mmHg TR max jose: 230.8 cm/sec E/E' Lat: 6.5 E/E' Med: 6.1 EDV(MOD-sp2): 103.0 ml EF (MOD-bp): 68.4 % EF(MOD-sp2): 68.0 % ESV(MOD-sp2): 33.0 ml LA Vol Index: 20.2 ml/m? Echocardiology Report Lat Peak E' Jose: 14.7 cm/sec LVLd ap2: 9.3 cm LVLs ap2: 7.9 cm Med Peak E' Jose: 15.9 cm/sec Electronically signed by: Pieter Ying MD 06/03/2023, 10: 13 AM FINAL REPORT Dictated: 05/29/2023 3:02 pm Pieter Ying MD Signed (Electronic Signature): 06/03/2023 10:13 am Signed by: Pieter Ying MD Transcribed by: MAKENZIE Technologist: CARI Rosales [facility] 03-25-2023 Note HPI Staff Nicole is a 27 year old female presenting for IUD placement Procedure: IUD insertion IUD type: [x_] Mirena ? [_] Paraguard ? [_] Fatmata ? [x] Kyleena ? Denies any chance of being , pt states she is lesbian. History of Present Illness pt present today for Mirena IUD insertion. test deferred due to pt sexual orientation Review of Systems ROS - Provider Constitutional: no fever, no chills, no sweats, no fatigue Respiratory: no shortness of breath, no cough, no orthopnea, no wheezing. Cardiovascular: no chest pain, no palpitations, no edema. Neurologic: no headache, no dizziness, no numbness, no weakness. menorrhagia Physical Exam General: alert, no acute distress ENMT: oral mucosa moist, no pharyngeal erythema or exudate Cardiovascular: regular rate and rhythm, normal peripheral perfusion Respiratory: Lungs CTA, respirations non labored Extremities: no deformity, no trauma Neurological: oriented x 4, LOC appropriate for age, CN II-XII intact, motor strength equal & normal bilaterally, speech normal Procedure Time out complete. pt in lithotomy position. Bimanual exam performed. speculum was placed. Vagina and cervix cleansed with Betadine. sterile technique maintained through entire procedure. A single toothed tenaculum was applied to anterior lip of cervix and gentle traction applied to straighten and stabilize it. The depth of the uterus was sounded to be of appropriate depth 6cm. cervical dilators were used to help open cervical os. With gentle traction on the tenaculum the IUD was inserted to the appropriate depth and deposited by withdrawing on the insertion tube holding the abeba steady. The string was cut. bleeding was minimal pt tolerated well. standard post procedure care discussed. Assessment/Plan 1. Encounter for IUD insertion (Z30.430: Encounter for insertion of intrauterine contraceptive device) cervical dilators were used to dilate cervical os. IUD inserted without difficulty see procedure note for details. pt to return in April for string check. pt tolerated procedure well. all questions answered. card with IUD information and removal date provided. RTC 4 weeks 2. BMI 29.0-29.9,adult (Z68.29: Body mass index [BMI] 29.0-29.9, adult) BMI education complete 3. Vaping nicotine dependence, tobacco product (F17.290: Nicotine dependence, other tobacco product, uncomplicated) consider not vaping Follow-up No qualifying data available Problem List/Past Medical History Ongoing Absence of aortic valve leaflet Anxiety Asthma, exercise induced Bicuspid aortic valve BMI 24.0-24.9, adult Bronchitis with wheezing Cervical cancer screening Cold sore Encounter for IUD insertion Insect bites Left knee pain Left knee sprain Low back pain Menorrhagia Oral herpes simplex infection Radiculopathy Sinusitis Smoker Well woman exam Historical Adult BMI 28.0-28.9 kg/sq m Adult BMI 29.0-29.9 kg/sq m Adult BMI 30.0-30.9 kg/sq m Class 1 obesity with body mass index (BMI) of 30.0 to 30.9 in adult Procedure/Surgical History Tonsillectomy and adenoidectomy (2001). Medications albuterol HFA 90 mcg/inh MDI, 2 puff(s), Inhalation, q4hr, PRN triamcinolone Top 0.1% Oint, 1 donaldo, Topical, TID valacyclovir 1 g Tab, See Instructions, 4 refills Allergies No Known Medication Allergies Social History Alcohol Current, Beer, Wine, Liquor, 3-5 times per week, 1 drinks/episode average. 2.00 drinks/episode maximum. Started age 23 Years. Previous treatment: None. Alcohol use interferes with work or home: No. Drinks more than intended: No. Others hurt by drinking: No. Ready to change: No., 05/10/2019 Substance Abuse - Denies Substance Abuse, 05/10/2019 Tobacco - Low Risk, 04/08/2022 Former smoker, quit more than 30 days ago Tobacco Use:. Never, Current vaping or e-cigarette use Smokeless Tobacco Use:. Cigarettes, Vaping, Ready to change: No. Household tobacco concerns: No. Yes, 03/21/2023 Family History ADHD: Brother. Bipolar: Sister. Thyroid condition: Mother. Immunizations Vaccine Date Status Comments influenza virus vaccine, inactivated - Not Given Patient Refuses influenza virus vaccine, inactivated - Not Given Patient Refuses SARS-CoV-2 (COVID-19) mRNA BNT-162b2 vax 09/14/2020 Recorded SARS-CoV-2 (COVID-19) mRNA BNT-162b2 vax 08/24/2020 Recorded influenza virus vaccine, live, trivalent - Not Given Patient Refuses diphtheria/pertussis, acel/tetanus adult 01/03/2010 Recorded meningococcal conjugate vaccine 01/03/2010 Recorded human papillomavirus vaccine 01/03/2010 Recorded poliovirus vaccine, inactivated 06/07/2002 Recorded DTaP, unspecified formulation 06/07/2002 Recorded varicella virus vaccine 08/11/2001 Recorded measles/mumps/rubella virus vaccine 08/11/2001 Recorded [facility] Comment on above: Result Comment: Elec tronically Signed By: Monique Navarro\.br\Date and Time Signed: 03/25/23 09:49 EST 04-08-2022 Hospital Discharg e instructions Patient Education 04/08/2022 12:31:57 Budget-Friendly Healthy Eating Budget-Friendly Healthy Eating There are many ways to save money at the grocery store and continue to eat healthy. You can be successful if you: Plan meals according to your budget. Make a grocery list and only purchase food according to your grocery list. Prepare food yourself. What are tips for following this plan? Reading food labels Compare food labels between brand name foods and the store brand. Often the nutritional value is the same, but the store brand is lower cost. Look for products that do not have added sugar, fat, or salt (sodium). These often cost the same but are healthier for you. Products may be labeled as: ?Sugar-free. ?Nonfat. ?Low-fat. ?Sodium-free. ?Low-sodium. Look for lean ground beef labeled as at least 92% lean and 8% fat. Shopping Buy only the items on your grocery list and go only to the areas of the store that have the items on your list. Use coupons only for foods and brands you normally buy. Avoid buying items you wouldn't normally buy simply because they are on sale. Check online and in newspapers for weekly deals. Buy healthy items from the bulk bins when available, such as herbs, spices, flour, pasta, nuts, and dried fruit. Buy fruits and vegetables that are in season. Prices are usually lower on in-season produce. Look at the unit juarez on the juarez tag. Use it to compare different brands and sizes to find out which item is the best deal. Choose healthy items that are often low-cost, such as carrots, potatoes, apples, bananas, and oranges. Dried or canned beans are a low-cost protein source. Buy in bulk and freeze extra food. Items you can buy in bulk include meats, fish, poultry, frozen fruits, and frozen vegetables. Avoid buying ypawm-sf-yve foods, such as pre-cut fruits and vegetables and pre-made salads. If possible, shop around to discover where you can find the best prices. Consider other retailers such as [employer] stores, larger wholesale stores, local fruit and vegetable norin[employer]tv, and [employer] markets. Do not shop when you are hungry. If you shop while hungry, it may be hard to stick to your list and budget. Resist impulse buying. Use your grocery list as your official plan for the week. Buy a variety of vegetables and fruits by purchasing fresh, frozen, and canned items. Look at the top and bottom shelves for deals. Foods at eye level (eye level of an adult or child) are usually more expensive. Be efficient with your time when shopping. The more time you spend at the store, the more money you are likely to spend. To save money when choosing more expensive foods like meats and dairy: ?Choose cheaper cuts of meat, such as bone-in chicken thighs and drumsticks instead of skinless and boneless chicken. When you are ready to prepare the chicken, you can remove the skin yourself to make it healthier. ?Choose lean meats like chicken or turkey instead of beef. ?Choose canned seafood, such as tuna, salmon, or sardines. ?Buy eggs as a low-cost source of protein. ?Buy dried beans and peas, such as lentils, split peas, or kidney beans instead of meats. Dried beans and peas are a good alternative source of protein. ?Buy the larger tubs of yogurt instead of individual-sized containers. Choose water instead of sodas and other sweetened beverages. Avoid buying chips, cookies, and other junk food. These items are usually expensive and not healthy. Cooking Make extra food and freeze the extras in meal-sized containers or in individual portions for fast meals and snacks. Pre-cook on days when you have extra time to prepare meals in advance. You can keep these meals in the fridge or freezer and reheat for a quick meal. When you come home from the grocery store, wash, peel, and cut fruits and vegetables so they are ready to use and eat. This will help reduce food waste. Meal planning Do not eat out or get fast food. Prepare food at home. Make a grocery list and make sure to bring it with you to the store. If you have a smart phone, you could use your phone to create your shopping list. Plan meals and snacks according to a grocery list and budget you create. Use leftovers in your meal plan for the week. Look for recipes where you can cook once and make enough food for two meals. Include budget-friendly meals like stews, casseroles, and stir-russ dishes. Try some meatless meals or try no cook meals like salads. Make sure that half your plate is filled with fruits or vegetables. Choose from fresh, frozen, or canned fruits and vegetables. If eating canned, remember to rinse them before eating. This will remove any excess salt added for packaging. Summary Eating healthy on a budget is possible if you plan your meals according to your budget, purchase according to your budget and grocery list, and prepare food yourself. Tips for buying more food on a limited budget include buying generic brands, using coupons only for foods you normally buy, and buying healthy items from the bulk bins when available. Tips for buying cheaper food to replace expensive food include choosing cheaper, lean cuts of meat, and buying dried beans and peas. This information is not intended to replace advice given to you by your health care provider. Make sure you discuss any questions you have with your health care provider. Document Released: 11/11/2014 Document Revised: 03/11/2018 Document Reviewed: 03/11/2018 [employer] Patient Education 2020 [employer]. 04/08/2022 12:31:56 BMI for Adults BMI for Adults Body mass index (BMI) is a number that is calculated from a person's weight and height. BMI may help to estimate how much of a person's weight is composed of fat. BMI can help identify those who may be at higher risk for certain medical problems. How is BMI used with adults? BMI is used as a screening tool to identify possible weight problems. It is used to check whether a person is obese, overweight, healthy weight, or underweight. How is BMI calculated? BMI measures your weight and compares it to your height. This can be done either in [place] or metric measurements. Note that charts are available to help you find your BMI quickly and easily without having to do these calculations yourself. To calculate your BMI in [place] measurements, your health care provider will: 1.Measure your weight in pounds (lb). 2.Multiply the number of pounds by 703. For example, for a person who weighs 180 lb, multiply that number by 703, which equals 126,540. 3.Measure your height in inches (in). Then multiply that number by itself to get a measurement called inches squared. For example, for a person who is 70 in tall, the inches squared measurement is 70 in x 70 in, which equals 4900 inches squared. 4.Divide the total from Step 2 (number of lb x 703) by the total from Step 3 (inches squared): 126,540 4900 = 25.8. This is your BMI. To calculate your BMI in metric measurements, your health care provider will: 1.Measure your weight in kilograms (kg). 2.Measure your height in meters (m). Then multiply that number by itself to get a measurement called meters squared. For example, for a person who is 1.75 m tall, the meters squared measurement is 1.75 m x 1.75 m, which is equal to 3.1 meters squared. 3.Divide the number of kilograms (your weight) by the meters squared number. In this example: 70 3.1 = 22.6. This is your BMI. How is BMI interpreted? To interpret your results, your health care provider will use BMI charts to identify whether you are underweight, normal weight, overweight, or obese. The following guidelines will be used: Underweight: BMI less than 18.5. Normal weight: BMI between 18.5 and 24.9. Overweight: BMI between 25 and 29.9. Obese: BMI of 30 and above. Please note: Weight includes both fat and muscle, so someone with a muscular build, such as an athlete, may have a BMI that is higher than 24.9. In cases like these, BMI is not an accurate measure of body fat. To determine if excess body fat is the cause of a BMI of 25 or higher, further assessments may need to be done by a health care provider. BMI is usually interpreted in the same way for men and women. Why is BMI a useful tool? BMI is useful in two ways: Identifying a weight problem that may be related to a medical condition, or that may increase the risk for medical problems. Promoting lifestyle and diet changes in order to reach a healthy weight. Summary Body mass index (BMI) is a number that is calculated from a person's weight and height. BMI may help to estimate how much of a person's weight is composed of fat. BMI can help identify those who may be at higher risk for certain medical problems. BMI can be measured using [place] measurements or metric measurements. To interpret your results, your health care provider will use BMI charts to identify whether you are underweight, normal weight, overweight, or obese. This information is not intended to replace advice given to you by your health care provider. Make sure you discuss any questions you have with your health care provider. Document Released: 11/19/2004 Document Revised: 02/20/2018 Document Reviewed: 01/21/2018 [employer] Patient Education 2020 [employer]. 04/08/2022 12:31:54 Sinusitis, Adult Sinusitis, Adult Sinusitis is inflammation of your sinuses. Sinuses are hollow spaces in the bones around your face. Your sinuses are located: Around your eyes. In the middle of your forehead. Behind your nose. In your cheekbones. Mucus normally drains out of your sinuses. When your nasal tissues become inflamed or swollen, mucus can become trapped or blocked. This allows bacteria, viruses, and fungi to grow, which leads to infection. Most infections of the sinuses are caused by a virus. Sinusitis can develop quickly. It can last for up to 4 weeks (acute) or for more than 12 weeks (chronic). Sinusitis often develops after a cold. What are the causes? This condition is caused by anything that creates swelling in the sinuses or stops mucus from draining. This includes: Allergies. Asthma. Infection from bacteria or viruses. Deformities or blockages in your nose or sinuses. Abnormal growths in the nose (nasal polyps). Pollutants, such as chemicals or irritants in the air. Infection from fungi (rare). What increases the risk? You are more likely to develop this condition if you: Have a weak body defense system (immune system). Do a lot of swimming or diving. Overuse nasal sprays. Smoke. What are the signs or symptoms? The main symptoms of this condition are pain and a feeling of pressure around the affected sinuses. Other symptoms include: Stuffy nose or congestion. Thick drainage from your nose. Swelling and warmth over the affected sinuses. Headache. Upper toothache. A cough that may get worse at night. Extra mucus that collects in the throat or the back of the nose (postnasal drip). Decreased sense of smell and taste. Fatigue. A fever. Sore throat. Bad breath. How is this diagnosed? This condition is diagnosed based on: Your symptoms. Your medical history. A physical exam. Tests to find out if your condition is acute or chronic. This may include: ?Checking your nose for nasal polyps. ?Viewing your sinuses using a device that has a light (endoscope). ?Testing for allergies or bacteria. ?Imaging tests, such as an MRI or CT scan. In rare cases, a bone biopsy may be done to rule out more serious types of fungal sinus disease. How is this treated? Treatment for sinusitis depends on the cause and whether your condition is chronic or acute. If caused by a virus, your symptoms should go away on their own within 10 days. You may be given medicines to relieve symptoms. They include: ?Medicines that shrink swollen nasal passages (topical intranasal decongestants). ?Medicines that treat allergies (antihistamines). ?A spray that eases inflammation of the nostrils (topical intranasal corticosteroids). ?Rinses that help get rid of thick mucus in your nose (nasal saline washes). If caused by bacteria, your health care provider may recommend waiting to see if your symptoms improve. Most bacterial infections will get better without antibiotic medicine. You may be given antibiotics if you have: ?A severe infection. ?A weak immune system. If caused by narrow nasal passages or nasal polyps, you may need to have surgery. Follow these instructions at home: Medicines Take, use, or apply quzn-lcj-fyzwlvk and prescription medicines only as told by your health care provider. These may include nasal sprays. If you were prescribed an antibiotic medicine, take it as told by your health care provider. Do not stop taking the antibiotic even if you start to feel better. Hydrate and humidify Drink enough fluid to keep your urine pale yellow. Staying hydrated will help to thin your mucus. Use a cool mist humidifier to keep the humidity level in your home above 50%. Inhale steam for 10 15 minutes, 3 4 times a day, or as told by your health care provider. You can do this in the bathroom while a hot shower is running. Limit your exposure to cool or dry air. Rest Rest as much as possible. Sleep with your head raised (elevated). Make sure you get enough sleep each night. General instructions Apply a warm, moist washcloth to your face 3 4 times a day or as told by your health care provider. This will help with discomfort. Wash your hands often with soap and water to reduce your exposure to germs. If soap and water are not available, use hand estate planner. Do not smoke. Avoid being around people who are smoking (secondhand smoke). Keep all follow-up visits as told by your health care provider. This is important. Contact a health care provider if: You have a fever. Your symptoms get worse. Your symptoms do not improve within 10 days. Get help right away if: You have a severe headache. You have persistent vomiting. You have severe pain or swelling around your face or eyes. You have vision problems. You develop confusion. Your neck is stiff. You have trouble breathing. Summary Sinusitis is soreness and inflammation of your sinuses. Sinuses are hollow spaces in the bones around your face. This condition is caused by nasal tissues that become inflamed or swollen. The swelling traps or blocks the flow of mucus. This allows bacteria, viruses, and fungi to grow, which leads to infection. If you were prescribed an antibiotic medicine, take it as told by your health care provider. Do not stop taking the antibiotic even if you start to feel better. Keep all follow-up visits as told by your health care provider. This is important. This information is not intended to replace advice given to you by your health care provider. Make sure you discuss any questions you have with your health care provider. Document Released: 03/10/2006 Document Revised: 08/10/2018 Document Reviewed: 08/10/2018 [employer] Patient Education 2020 [employer]. 04/08/2022 12:31:52 Insect Bite, Adult, Yczc-jg-Heff Insect Bite, Adult An insect bite can make your skin red, itchy, and swollen. Some insects can spread disease to people with a bite. However, most insect bites do not lead to disease, and most are not serious. What are the causes? Insects may bite for many reasons, including: Hunger. To defend themselves. Insects that bite include: Spiders. Mosquitoes. Ticks. Fleas. Ants. Flies. Kissing bugs. Chiggers. What are the signs or symptoms? Symptoms of this condition include: Itching or pain in the bite area. Redness and swelling in the bite area. An open wound (skin ulcer). Symptoms often last for 2 4 days. In rare cases, a person may have a very bad allergic reaction (anaphylactic reaction) to a bite. Symptoms of an anaphylactic reaction may include: Feeling training assistant the face (flushed). Your face may turn red. Itchy, red, swollen areas of skin (hives). Swelling of the: ?Eyes. ?Lips. ?Face. ?Mouth. ?Tongue. ?Throat. Trouble with any of these: ?Breathing. ?Talking. ?Swallowing. Loud breathing (wheezing). Feeling dizzy or light-headed. Passing out (fainting). Pain or cramps in your belly. Throwing up (vomiting). Watery poop (diarrhea). How is this treated? Treatment is usually not needed. Symptoms often go away on their own. When treatment is needed, it may involve: Putting a cream or lotion on the bite area. This helps with itching. Taking an antibiotic medicine. This treatment is needed if the bite area gets infected. Getting a tetanus shot, if you are not up to date on this vaccine. Putting ice on the affected area. Using medicines called antihistamines. This treatment may be needed if you have itching or an allergic reaction to the insect bite. Giving yourself a shot of medicine (epinephrine) using an auto-injector pen if you have an anaphylactic reaction to a bite. Your doctor will teach you how to use this pen. Follow these instructions at home: Bite area care Do not scratch the bite area. Keep the bite area clean and dry. Wash the bite area every day with soap and water as told by your doctor. Check the bite area every day for signs of infection. Check for: ?Redness, swelling, or pain. ?Fluid or blood. ?Warmth. ?Pus or a bad smell. Managing pain, itching, and swelling You may put any of these on the bite area as told by your doctor: ?A paste made of baking soda and water. ?Cortisone cream. ?Calamine lotion. If told, put ice on the bite area. ?Put ice in a plastic bag. ?Place a towel between your skin and the bag. ?Leave the ice on for 20 minutes, 2 3 times a day. General instructions Apply or take xqae-jfh-yeeilar and prescription medicines only as told by your doctor. If you were prescribed an antibiotic medicine, take or apply it as told by your doctor. Do not stop using the antibiotic even if your condition improves. Keep all follow-up visits as told by your doctor. This is important. How is this prevented? To help you have a lower risk of insect bites: When you are outside, wear clothing that covers your arms and legs. Use insect repellent. The best insect repellents contain one of these: ?DEET. ?Picaridin. ?Oil of lemon eucalyptus (OLE). ?OU8152. Consider spraying your clothing with a pesticide called permethrin. Permethrin helps prevent insect bites. It works for several weeks and for up to 5 6 clothing washes. Do not apply permethrin directly to the skin. If your home windows do not have screens, think about putting some in. If you will be sleeping in an area where there are mosquitoes, consider covering your sleeping area with a mosquito net. Contact a doctor if: You have redness, swelling, or pain in the bite area. You have fluid or blood coming from the bite area. The bite area feels warm to the touch. You have pus or a bad smell coming from the bite area. You have a fever. Get help right away if: You have joint pain. You have a rash. You feel more tired or sleepy than you normally do. You have neck pain. You have a headache. You feel weaker than you normally do. You have signs of an anaphylactic reaction. Signs may include: ?Feeling training assistant the face. ?Itchy, red, swollen areas of skin. ?Swelling of your: ?Eyes. ?Lips. ?Face. ?Mouth. ?Tongue. ?Throat. ?Trouble with any of these: ?Breathing. ?Talking. ?Swallowing. ?Loud breathing. ?Feeling dizzy or light-headed. ?Passing out. ?Pain or cramps in your belly. ?Throwing up. ?Watery poop. These symptoms may be an emergency. Do not wait to see if the symptoms will go away. Do this right away: Use your auto-injector pen as you have been told. Get medical help. Call your local emergency services (911 in the [place] Do not drive yourself to the hospital. Summary An insect bite can make your skin red, itchy, and swollen. Treatment is usually not needed. Symptoms often go away on their own. Do not scratch the bite area. Keep it clean and dry. Ice can help with pain and itching from the bite. This information is not intended to replace advice given to you by your health care provider. Make sure you discuss any questions you have with your health care provider. Document Released: 03/07/2001 Document Revised: 09/18/2018 Document Reviewed: 09/18/2018 [employer] Patient Education 2020 [employer] 04/08/2022 12:31:48 Cold Sore Cold Sore A cold sore, also called a fever blister, is a small, fluid-filled sore that forms inside the mouth or on the lips, gums, nose, chin, or cheeks. Cold sores can spread to other parts of the body, such as the eyes or fingers. In some people who have other medical conditions, cold sores can spread to multiple other body sites, including the genitals. Cold sores can spread from person to person (are contagious) until the sores crust over completely. Most cold sores go away within 2 weeks. What are the causes? Cold sores are caused by an infection from a common type of herpes simplex virus (HSV-1). HSV-1 is closely related to the HSV-2virus, which is the virus that causes genital herpes, but these viruses are not the same. Once a person is infected with HSV-1, the virus remains permanently in the body. HSV-1 is spread from person to person through close contact, such as through kissing, touching the affected area, or sharing personal items such as lip balm, razors, a drinking glass, or eating utensils. What increases the risk? You are more likely to develop this condition if you: Are tired, stressed, or sick. Are menstruating. Are . Take certain medicines. Are exposed to cold weather or too much sun. What are the signs or symptoms? Symptoms of a cold sore outbreak go through different stages. These are the stages of a cold sore: Tingling, itching, or burning is felt 1 2 days before the outbreak. Fluid-filled blisters appear on the lips, inside the mouth, on the nose, or on the cheeks. The blisters start to ooze clear fluid. The blisters dry up, and a yellow crust appears in their place. The crust falls off. In some cases, other symptoms can develop during a cold sore outbreak. These can include: Fever. Sore throat. Headache. Muscle aches. Swollen neck glands. How is this diagnosed? This condition is diagnosed based on your medical history and a physical exam. Your health care provider may do a blood test or may swab some fluid from your sore and then examine the swab in the lab. How is this treated? There is no cure for cold sores or HSV-1. There is also no vaccine for HSV-1. Most cold sores go away on their own without treatment within 2 weeks. Medicines cannot make the infection go away, but your health care provider may prescribe medicines to: Help relieve some of the pain associated with the sores. Work to stop the virus from multiplying. Shorten healing time. Medicines may be in the form of creams, gels, pills, or a shot. Follow these instructions at home: Medicines Take or apply ypmv-yyo-skcqlsp and prescription medicines only as told by your health care provider. Use a cotton-tip swab to apply creams or gels to your sores. Ask your health care provider if you can take lysine supplements. Research has found that lysine may help heal the cold sore faster and prevent outbreaks. Sore care Do not touch the sores or pick the scabs. Wash your hands often. Do not touch your eyes without washing your hands first. Keep the sores clean and dry. If directed, apply ice to the sores: ?Put ice in a plastic bag. ?Place a towel between your skin and the bag. ?Leave the ice on for 20 minutes, 2 3 times a day. Eating and drinking Eat a soft, bland diet. Avoid eating hot, cold, or salty foods. Use a straw if it hurts to drink out of a glass. Eat foods that are rich in lysine, such as meat, fish, and dairy products. Avoid sugary foods, chocolates, nuts, and grains. These foods are rich in a nutrient called arginine, which can cause the virus to multiply. Lifestyle Do not kiss, have oral sex, or share personal items until your sores heal. Stress, poor sleep, and being out in the sun can trigger outbreaks. Make sure you: ?Do activities that help you relax, such as deep breathing exercises or meditation. ?Get enough sleep. ?Apply sunscreen on your lips before you go out in the sun. Contact a health care provider if: You have symptoms for more than 2 weeks. You have pus coming from the sores. You have redness that is spreading. You have pain or irritation in your eye. You get sores on your genitals. Your sores do not heal within 2 weeks. You have frequent cold sore outbreaks. Get help right away if you have: A fever and your symptoms suddenly get worse. A headache and confusion. Fatigue or loss of appetite. A stiff neck or sensitivity to light. Summary A cold sore, also called a fever blister, is a small, fluid-filled sore that forms inside the mouth or on the lips, gums, nose, chin, or cheeks. Most cold sores go away on their own without treatment within 2 weeks. Your health care provider may prescribe medicines to help relieve some of the pain, work to stop the virus from multiplying, and shorten healing time. Wash your hands often. Do not touch your eyes without washing your hands first. Do not kiss, have oral sex, or share personal items until your sores heal. Contact a health care provider if your sores do not heal within 2 weeks. This information is not intended to replace advice given to you by your health care provider. Make sure you discuss any questions you have with your health care provider. Document Released: 03/07/2001 Document Revised: 06/30/2019 Document Reviewed: 08/10/2018 [employer] Patient Education 2020 [employer] Follow Up Care 04/04/2022 12:05:23 With:NASIM CARLINNATHALIE Address: [address] [place] [address] When: Unknown [facility] Sh[facility]an 02-19-2022 Hospital Discharg e instructions Patient Education 02/19/2022 14:57:14 Tobacco Use Disorder Tobacco Use Disorder Tobacco use disorder (TUD) occurs when a person craves, seeks, and uses tobacco, regardless of the consequences. This disorder can cause problems with mental and physical health. It can affect your ability to have healthy relationships, and it can keep you from meeting your responsibilities at work, home, or school. Tobacco may be: Smoked as a cigarette or cigar. Inhaled using e-cigarettes. Smoked in a pipe or hookah. Chewed as smokeless tobacco. Inhaled into the nostrils as snuff. Tobacco products contain a dangerous chemical called nicotine, which is very addictive. Nicotine triggers hormones that make the body feel stimulated and works on areas of the brain that make you feel good. These effects can make it hard for people to quit nicotine. Tobacco contains many other unsafe chemicals that can damage almost every organ in the body. Smoking tobacco also puts others in danger due to fire risk and possible health problems caused by breathing in secondhand smoke. What are the signs or symptoms? Symptoms of TUD may include: Being unable to slow down or stop your tobacco use. Spending an abnormal amount of time getting or using tobacco. Craving tobacco. Cravings may last for up to 6 months after quitting. Tobacco use that: ?Interferes with your work, school, or home life. ?Interferes with your personal and social relationships. ?Makes you give up activities that you once enjoyed or found important. Using tobacco even though you know that it is: ?Dangerous or bad for your health or someone else's health. ?Causing problems in your life. Needing more and more of the substance to get the same effect (developing tolerance). Experiencing unpleasant symptoms if you do not use the substance (withdrawal). Withdrawal symptoms may include: ?Depressed, anxious, or irritable mood. ?Difficulty concentrating. ?Increased appetite. ?Restlessness or trouble sleeping. Using the substance to avoid withdrawal. How is this diagnosed? This condition may be diagnosed based on: Your current and past tobacco use. Your health care provider may ask questions about how your tobacco use affects your life. A physical exam. You may be diagnosed with TUD if you have at least two symptoms within a 12-month period. How is this treated? This condition is treated by stopping tobacco use. Many people are unable to quit on their own and need help. Treatment may include: Nicotine replacement therapy (NRT). NRT provides nicotine without the other harmful chemicals in tobacco. NRT gradually lowers the dosage of nicotine in the body and reduces withdrawal symptoms. NRT is available as: ?Hako-zis-gutarzd gums, lozenges, and skin patches. ?Prescription mouth inhalers and nasal sprays. Medicine that acts on the brain to reduce cravings and withdrawal symptoms. A type of talk therapy that examines your triggers for tobacco use, how to avoid them, and how to cope with cravings (behavioral therapy). Hypnosis. This may help with withdrawal symptoms. Joining a support group for others coping with TUD. The best treatment for TUD is usually a combination of medicine, talk therapy, and support groups. Recovery can be a long process. Many people start using tobacco again after stopping (relapse). If you relapse, it does not mean that treatment will not work. Follow these instructions at home: Lifestyle Do not use any products that contain nicotine or tobacco, such as cigarettes and e-cigarettes. Avoid things that trigger tobacco use as much as you can. Triggers include people and situations that usually cause you to use tobacco. Avoid drinks that contain caffeine, including coffee. These may worsen some withdrawal symptoms. Find ways to manage stress. Wanting to smoke may cause stress, and stress can make you want to smoke. Relaxation techniques such as deep breathing, meditation, and yoga may help. Attend support groups as needed. These groups are an important part of long-term recovery for many people. General instructions Take eeas-pyz-lkrsvrb and prescription medicines only as told by your health care provider. Check with your health care provider before taking any new prescription or kvbm-tcp-cpmzity medicines. Decide on a friend, family member, or smoking quit-line (such as 2-284-MDQC-NOW in the [place] that you can call or text when you feel the urge to smoke or when you need help coping with cravings. Keep all follow-up visits as told by your health care provider and therapist. This is important. Contact a health care provider if: You are not able to take your medicines as prescribed. Your symptoms get worse, even with treatment. Summary Tobacco use disorder (TUD) occurs when a person craves, seeks, and uses tobacco regardless of the consequences. This condition may be diagnosed based on your current and past tobacco use and a physical exam. Many people are unable to quit on their own and need help. Recovery can be a long process. The most effective treatment for TUD is usually a combination of medicine, talk therapy, and support groups. This information is not intended to replace advice given to you by your health care provider. Make sure you discuss any questions you have with your health care provider. Document Released: 11/13/2004 Document Revised: 02/25/2018 Document Reviewed: 02/25/2018 [employer] Patient Education 2020 [employer]. 02/19/2022 14:57:11 Budget-Friendly Healthy Eating Budget-Friendly Healthy Eating There are many ways to save money at the grocery store and continue to eat healthy. You can be successful if you: Plan meals according to your budget. Make a grocery list and only purchase food according to your grocery list. Prepare food yourself. What are tips for following this plan? Reading food labels Compare food labels between brand name foods and the store brand. Often the nutritional value is the same, but the store brand is lower cost. Look for products that do not have added sugar, fat, or salt (sodium). These often cost the same but are healthier for you. Products may be labeled as: ?Sugar-free. ?Nonfat. ?Low-fat. ?Sodium-free. ?Low-sodium. Look for lean ground beef labeled as at least 92% lean and 8% fat. Shopping Buy only the items on your grocery list and go only to the areas of the store that have the items on your list. Use coupons only for foods and brands you normally buy. Avoid buying items you wouldn't normally buy simply because they are on sale. Check online and in newspapers for weekly deals. Buy healthy items from the bulk bins when available, such as herbs, spices, flour, pasta, nuts, and dried fruit. Buy fruits and vegetables that are in season. Prices are usually lower on in-season produce. Look at the unit juarez on the juarez tag. Use it to compare different brands and sizes to find out which item is the best deal. Choose healthy items that are often low-cost, such as carrots, potatoes, apples, bananas, and oranges. Dried or canned beans are a low-cost protein source. Buy in bulk and freeze extra food. Items you can buy in bulk include meats, fish, poultry, frozen fruits, and frozen vegetables. Avoid buying ywggq-tf-ezk foods, such as pre-cut fruits and vegetables and pre-made salads. If possible, shop around to discover where you can find the best prices. Consider other retailers such as [employer] stores, larger wholesale stores, local fruit and vegetable [employer], and [employer] markets. Do not shop when you are hungry. If you shop while hungry, it may be hard to stick to your list and budget. Resist impulse buying. Use your grocery list as your official plan for the week. Buy a variety of vegetables and fruits by purchasing fresh, frozen, and canned items. Look at the top and bottom shelves for deals. Foods at eye level (eye level of an adult or child) are usually more expensive. Be efficient with your time when shopping. The more time you spend at the store, the more money you are likely to spend. To save money when choosing more expensive foods like meats and dairy: ?Choose cheaper cuts of meat, such as bone-in chicken thighs and drumsticks instead of skinless and boneless chicken. When you are ready to prepare the chicken, you can remove the skin yourself to make it healthier. ?Choose lean meats like chicken or turkey instead of beef. ?Choose canned seafood, such as tuna, salmon, or sardines. ?Buy eggs as a low-cost source of protein. ?Buy dried beans and peas, such as lentils, split peas, or kidney beans instead of meats. Dried beans and peas are a good alternative source of protein. ?Buy the larger tubs of yogurt instead of individual-sized containers. Choose water instead of sodas and other sweetened beverages. Avoid buying chips, cookies, and other junk food. These items are usually expensive and not healthy. Cooking Make extra food and freeze the extras in meal-sized containers or in individual portions for fast meals and snacks. Pre-cook on days when you have extra time to prepare meals in advance. You can keep these meals in the fridge or freezer and reheat for a quick meal. When you come home from the grocery store, wash, peel, and cut fruits and vegetables so they are ready to use and eat. This will help reduce food waste. Meal planning Do not eat out or get fast food. Prepare food at home. Make a grocery list and make sure to bring it with you to the store. If you have a smart phone, you could use your phone to create your shopping list. Plan meals and snacks according to a grocery list and budget you create. Use leftovers in your meal plan for the week. Look for recipes where you can cook once and make enough food for two meals. Include budget-friendly meals like stews, casseroles, and stir-russ dishes. Try some meatless meals or try no cook meals like salads. Make sure that half your plate is filled with fruits or vegetables. Choose from fresh, frozen, or canned fruits and vegetables. If eating canned, remember to rinse them before eating. This will remove any excess salt added for packaging. Summary Eating healthy on a budget is possible if you plan your meals according to your budget, purchase according to your budget and grocery list, and prepare food yourself. Tips for buying more food on a limited budget include buying generic brands, using coupons only for foods you normally buy, and buying healthy items from the bulk bins when available. Tips for buying cheaper food to replace expensive food include choosing cheaper, lean cuts of meat, and buying dried beans and peas. This information is not intended to replace advice given to you by your health care provider. Make sure you discuss any questions you have with your health care provider. Document Released: 11/11/2014 Document Revised: 03/11/2018 Document Reviewed: 03/11/2018 [employer] Patient Education 2020 [employer] 02/19/2022 14:57:10 BMI for Adults BMI for Adults Body mass index (BMI) is a number that is calculated from a person's weight and height. BMI may help to estimate how much of a person's weight is composed of fat. BMI can help identify those who may be at higher risk for certain medical problems. How is BMI used with adults? BMI is used as a screening tool to identify possible weight problems. It is used to check whether a person is obese, overweight, healthy weight, or underweight. How is BMI calculated? BMI measures your weight and compares it to your height. This can be done either in [place] or metric measurements. Note that charts are available to help you find your BMI quickly and easily without having to do these calculations yourself. To calculate your BMI in [place] measurements, your health care provider will: 1.Measure your weight in pounds (lb). 2.Multiply the number of pounds by 703. For example, for a person who weighs 180 lb, multiply that number by 703, which equals 126,540. 3.Measure your height in inches (in). Then multiply that number by itself to get a measurement called inches squared. For example, for a person who is 70 in tall, the inches squared measurement is 70 in x 70 in, which equals 4900 inches squared. 4.Divide the total from Step 2 (number of lb x 703) by the total from Step 3 (inches squared): 126,540 4900 = 25.8. This is your BMI. To calculate your BMI in metric measurements, your health care provider will: 1.Measure your weight in kilograms (kg). 2.Measure your height in meters (m). Then multiply that number by itself to get a measurement called meters squared. For example, for a person who is 1.75 m tall, the meters squared measurement is 1.75 m x 1.75 m, which is equal to 3.1 meters squared. 3.Divide the number of kilograms (your weight) by the meters squared number. In this example: 70 3.1 = 22.6. This is your BMI. How is BMI interpreted? To interpret your results, your health care provider will use BMI charts to identify whether you are underweight, normal weight, overweight, or obese. The following guidelines will be used: Underweight: BMI less than 18.5. Normal weight: BMI between 18.5 and 24.9. Overweight: BMI between 25 and 29.9. Obese: BMI of 30 and above. Please note: Weight includes both fat and muscle, so someone with a muscular build, such as an athlete, may have a BMI that is higher than 24.9. In cases like these, BMI is not an accurate measure of body fat. To determine if excess body fat is the cause of a BMI of 25 or higher, further assessments may need to be done by a health care provider. BMI is usually interpreted in the same way for men and women. Why is BMI a useful tool? BMI is useful in two ways: Identifying a weight problem that may be related to a medical condition, or that may increase the risk for medical problems. Promoting lifestyle and diet changes in order to reach a healthy weight. Summary Body mass index (BMI) is a number that is calculated from a person's weight and height. BMI may help to estimate how much of a person's weight is composed of fat. BMI can help identify those who may be at higher risk for certain medical problems. BMI can be measured using [place] measurements or metric measurements. To interpret your results, your health care provider will use BMI charts to identify whether you are underweight, normal weight, overweight, or obese. This information is not intended to replace advice given to you by your health care provider. Make sure you discuss any questions you have with your health care provider. Document Released: 11/19/2004 Document Revised: 02/20/2018 Document Reviewed: 01/21/2018 [employer] Patient Education 2020 [employer]. Follow Up Care 02/18/2022 08:13:45 With:Yandy Anand CNP Address:Unknown When: Unknown [facility] 10-25-2021 Evaluation note Encounter Date Diagnosis Assessment Notes Oct, Contusion of left knee, subsequent encounter (ICD-10 - S80.02XD) MRI reviewed with patient and company as evidence of soft tissue contusion without any evidence of ACL or meniscal tears. Instructed on continued motion and strengthening exercises including biking. May use kneepad for kneeling if she needs to. Discussed discomfort should subside over time. Patient declines formal therapy order today. Call with questions/concer ns. [facility] Other 07-14-2022 Evaluation note* Encounter Date Diagnosis Assessment Notes Treatment Notes Treatment Clinical Notes Sep, Contusion of left knee, subsequent encounter (ICD-10 - S80.02XD) 14 Danielito, 2022 Internal derangement of left knee (ICD-10 - M23.92) I have concern for meniscal tear based on the history of this condition and physical exam findings. This condition could require surgical treatment. An MRI will be necessary to plan futher treatment. Instructed on gentle motion exercises of the knee in the meantime. [facility] Other 06-28-2022 Evaluation note* Encounter Date Diagnosis Assessment Notes Treatment Notes Treatment Clinical Notes Aug, Contusion of left knee, initial encounter (ICD-10 - S80.02XA) We will treat this as a contusion of the right knee for now. We will begin gentle motion and strength exercise with hopes that the condition will improve with conservative measures. If pain persists and function is not improving we will need to consider MRI to assess for meniscal injury or other intra-articular injury. [facility] Other 06-23-2022 Hospital Discharge instructions Patient Education 09/13/2021 16:33:12 BMI for Adults BMI for Adults Body mass index (BMI) is a number that is calculated from a person's weight and height. BMI may help to estimate how much of a person's weight is composed of fat. BMI can help identify those who may be at higher risk for certain medical problems. How is BMI used with adults? BMI is used as a screening tool to identify possible weight problems. It is used to check whether aperson is obese, overweight, healthy weight, or underweight. How is BMI calculated? BMI measures your weight and compares it to your height. This can be done either in [place] or metric measurements. Note that charts are available to help you find your BMI quickly and easily without having to do these calculations yourself. To calculate your BMI in [place] measurements, your health care provider will: 1.Measure your weight in pounds (lb). 2.Multiply the number of pounds by 703. For example, for a person who weighs 180 lb, multiply that number by 703, which equals 126,540. 3.Measure your height in inches (in). Then multiply that number by itself to get a measurement called inches squared. For example, for a person who is 70 in tall, the inches squared measurement is 70 in x 70 in, which equals 4900 inches squared. 4.Divide the total from Step 2 (number of lb x 703) by the total from Step 3 (inches squared): 126,540 4900 = 25.8. This is your BMI. To calculate your BMI in metric measurements, your health care provider will: 1.Measure your weight in kilograms (kg). 2.Measure your height in meters (m). Then multiply that number by itself to get a measurement called meters squared. For example, for a person who is 1.75 m tall, the meters squared measurement is 1.75 m x 1.75 m, which is equal to 3.1 meters squared. 3.Divide the number of kilograms (your weight) by the meters squared number. In this example: 70 3.1 = 22.6. This is your BMI. How is BMI interpreted? To interpret your results, your health care provider will use BMI charts to identify whether you are underweight, normal weight, overweight, or obese. The following guidelines will be used: Underweight: BMI less than 18.5. Normal weight: BMI between 18.5 and 24.9. Overweight: BMI between 25 and 29.9. Obese: BMI of 30 and above. Please note: Weight includes both fat and muscle, so someone with a muscular build, such as an athlete, may havea BMI that is higher than 24.9. In cases like these, BMI is not an accurate measure of body fat. To determine if excess body fat is the cause of a BMI of 25 or higher, further assessments may needto be done by a health care provider. BMI is usually interpreted in the same way for men and women. Why is BMI a useful tool? BMI is useful in two ways: Identifying a weight problem that may be related to a medical condition, or that may increase the risk for medical problems. Promoting lifestyle and diet changes in order to reach a healthy weight. Summary Body mass index (BMI) is a number that is calculated from a person's weight and height. BMI may help to estimate how much of a person's weight is composed of fat. BMI can help identify those who may be at higher risk for certain medical problems. BMI can be measured using [place] measurements or metric measurements. To interpret your results, your health care provider will use BMI charts to identify whether you are underweight, normal weight, overweight, or obese. This information is not intended to replace advice given to you by your health care provider. Make sure you discuss any questions you have with your health care provider. Document Released: 11/19/2004 Document Revised: 02/20/2018 Document Reviewed: 01/21/2018 [employer] Patient Education 2020 [employer]. 09/13/2021 16:33:10 Tobacco Use Disorder Tobacco Use Disorder Tobacco use disorder (TUD) occurs when a person craves, seeks, and uses tobacco, regardless of the consequences. This disorder can cause problems with mental and physical health. It can affect your ability to have healthy relationships, and it can keep you from meeting your responsibilities at work, home, or school. Tobacco may be: Smoked as a cigarette or cigar. Inhaled using e-cigarettes. Smoked in a pipe or hookah. Chewed as smokeless tobacco. Inhaled into the nostrils as snuff. Tobacco products contain a dangerous chemical called nicotine, which is very addictive. Nicotine triggers hormones that make the body feel stimulated and works on areas of the brain that make you feel good. These effects can make it hard for people to quit nicotine. Tobacco contains many other unsafe chemicals that can damage almost every organ in the body. Smoking tobacco also puts others in danger due to fire risk and possible health problems caused by breathing in secondhand smoke. What are the signs or symptoms? Symptoms of TUD may include: Being unable to slow down or stop your tobacco use. Spending an abnormal amount of time getting or using tobacco. Craving tobacco. Cravings may last for up to 6 months after quitting. Tobacco use that: ?Interferes with your work, school, or home life. ?Interferes with your personal and social relationships. ?Makes you give up activities that you once enjoyed or found important. Using tobacco even though you know that it is: ?Dangerous or bad for your health or someone else's health. ?Causing problems in your life. Needing more and more of the substance to get the same effect (developing tolerance). Experiencing unpleasant symptoms if you do not use the substance (withdrawal). Withdrawal symptoms may include: ?Depressed, anxious, or irritable mood. ?Difficulty concentrating. ?Increased appetite. ?Restlessness or trouble sleeping. Using the substance to avoid withdrawal. How is this diagnosed? This condition may be diagnosed based on: Your current and past tobacco use. Your health care provider may ask questions about how your tobacco use affects your life. A physical exam. You may be diagnosed with TUD if you have at least two symptoms within a 12- month period. How is this treated? This condition is treated by stopping tobacco use. Many people are unable to quit on their own and need help. Treatment may include: Nicotine replacement therapy (NRT). NRT provides nicotine without the other harmful chemicals in tobacco. NRT gradually lowers the dosage of nicotine in the body and reduces withdrawal symptoms. NRT is available as: ?Nqjp-lwo-csfihtr gums, lozenges, and skin patches. ?Prescription mouth inhalers and nasal sprays. Medicine that acts on the brain to reduce cravings and withdrawal symptoms. A type of talk therapy that examines your triggers for tobacco use, how to avoid them, and how to cope with cravings (behavioral therapy). Hypnosis. This may help with withdrawal symptoms. Joining a support group for others coping with TUD. The best treatment for TUD is usually a combination of medicine, talk therapy, and support groups. Recovery can be a long process. Many people start using tobacco again after stopping (relapse). If you relapse, it does not mean that treatment will not work. Follow these instructions at home: Lifestyle Do not use any products that contain nicotine or tobacco, such as cigarettes and e-cigarettes. Avoid things that trigger tobacco use as much as you can. Triggers include people and situations that usually cause you to use tobacco. Avoid drinks that contain caffeine, including coffee. These may worsen some withdrawal symptoms. Find ways to manage stress. Wanting to smoke may cause stress, and stress can make you want to smoke. Relaxation techniques such as deep breathing, meditation, and yoga may help. Attend support groups as needed. These groups are an important part of long-term recovery for many people. General instructions Take ixcm-rte-hujyhyy and prescription medicines only as told by your health care provider. Check with your health care provider before taking any new prescription or sced-eer-hftqfmd medicines. Decide on a friend, family member, or smoking quit-line (such as 2-828-FKSE-NOW in the [place] that you can call or text when you feel the urge to smoke or when you need help coping with cravings. Keep all follow-up visits as told by your health care provider and therapist. This is important. Contact a health care provider if: You are not able to take your medicines as prescribed. Your symptoms get worse, even with treatment. Summary Tobacco use disorder (TUD) occurs when a person craves, seeks, and uses tobacco regardless of the consequences. This condition may be diagnosed based on your current and past tobacco use and a physical exam. Many people are unable to quit on their own and need help. Recovery can be a long process. The most effective treatment for TUD is usually a combination of medicine, talk therapy, and support groups. This information is not intended to replace advice given to you by your health care provider. Make sure you discuss any questions you have with your health care provider. Document Released: 11/13/2004 Document Revised: 02/25/2018 Document Reviewed: 02/25/2018 [employer] Patient Education 2020 [employer]. 09/13/2021 16:33:08 Knee Sprain, Adult Knee Sprain, Adult A knee sprain is a stretch or tear in a knee ligament. Knee ligaments are bands of tissue that connect bones in the knee to each other. What are the causes? This condition often results from: A fall. An injury to the knee. What are the signs or symptoms? Symptoms of this condition include: Trouble bending the leg. Swelling in the knee. Bruising around the knee. Tenderness or pain in the knee. Muscle spasms around the knee. How is this diagnosed? This condition may be diagnosed based on: A physical exam. What happened just before you started to have symptoms. Tests, including: ?An X-ray. This may be done to make sure no bones are broken. ?An MRI. This may be done to check if the ligament is torn. ?Stress testing of the knee. This may be done to check ligament damage. How is this treated? Treatment for this condition may involve: Keeping the knee still (immobilized) with a cast, brace, or splint. Applying ice to the knee. This helps with pain and swelling. Keeping the knee raised (elevated) above the level of your heart when you are resting. This helps with pain and swelling. Taking medicine for pain. Exercises to prevent or limit permanent weakness or stiffness in your knee. Surgery to reconnect the ligament to the bone or to reconstruct it. This may be needed if the ligament tore all the way. Follow these instructions at home: If you have a splint or brace: Wear the splint or brace as told by your health care provider. Remove it only as told by your health care provider. Loosen the splint or brace if your toes tingle, become numb, or turn cold and blue. Keep the splint or brace clean. If the splint or brace is not waterproof: ?Do not let it get wet. ?Cover it with a watertight covering when you take a bath or a shower. If you have a cast: Do not stick anything inside the cast to scratch your skin. Doing that increases your risk of infection. Check the skin around the cast every day. Tell your health care provider about any concerns. You may put lotion on dry skin around the edges of the cast. Do not put lotion on the skin underneath the cast. Keep the cast clean. If the cast is not waterproof: ?Do not let it get wet. ?Cover it with a watertight covering when you take a bath or a shower. Managing pain, stiffness, and swelling If directed, put ice on the injured area. ?If you have a removable splint or brace, remove it as told by your health care provider. ?Put ice in a plastic bag. ?Place a towel between your skin and the bag or between your cast and the bag. ?Leave the ice on for 20 minutes, 2 3 times a day. Gently move your toes often to avoid stiffness and to lessen swelling. Elevate the injured area above the level of your heart while you are sitting or lying down. Take pudt-jux-amgsaoq and prescription medicines only as told by your health care provider. General instructions Do exercises as told by your health care provider. Keep all follow-up visits as told by your health care provider. This is important. Contact a health care provider if: You have pain that gets worse. The cast, brace, or splint does not fit right. The cast, brace, or splint gets damaged. Get help right away if: You cannot use your injured joint to support any of your body weight (cannot bear weight). You cannot move the injured joint. You cannot walk more than a few steps without pain or without your knee buckling. You have significant pain, swelling, or numbness below the cast, brace, or splint. This information is not intended to replace advice given to you by your health care provider. Make sure you discuss any questions you have with your health care provider. Document Released: 03/10/2006 Document Revised: 07/02/2019 Document Reviewed: 09/27/2016 [employer] Patient Education 2020 [employer]. 09/13/2021 16:33:06 How to Use Cold Therapy How to Use Cold Therapy Cold therapy, also known as cryotherapy, is a treatment that uses cold temperatures to treat an injury or medical condition. It includes using cold packs or ice packs to reduce pain and swelling. What are the risks? Generally, cold therapy is a safe treatment. However, it is not safe for: People who cannot express pain, such as small children and people who have dementia. People who have certain conditions, such as: ?A problem in the vessels that slows blood flow to the fingers and toes (Raynaud's syndrome). ?Feeling very cold easily (cold hypersensitivity). ?Numbness or lack of feeling in the area being iced. Cold therapy may be unsafe for people who have other conditions. Do not use cold therapy without your health care provider's approval if you have: A heart condition. High blood pressure. Open or healing wounds. An infection. Rheumatoid arthritis. Poor circulation. Diabetes. Certain skin conditions. How can I make a cold pack? When using a cold pack at home to reduce pain and swelling, you can use: A silica gel cold pack that has been left in the freezer. You can buy this online or in stores. A sealable plastic bag that has been filled with crushed ice. A washcloth or paper towels soaked in cold (or ice) water. A plastic bag of frozen vegetables. Discard when finished using them as a cold pack. Supplies needed: A cold pack. A towel. This can be dry or damp, depending on your preference and comfort. How to use cold therapy 1.Have your cold pack ready. 2.Place a towel between the cold pack and your skin, or wrap the cold pack in a towel. 3.Apply the cold pack to the affected area. Apply for no more than 20 minutes at a time. 4.Check your skin after 5 minutes to make sure that there is no skin damage or other signs of problems. Check for: White spots on your skin. Your skin may look blotchy or mottled. Skin that looks blue or pale. Skin that feels waxy or hard. 5.Repeat these steps as many times each day as told by your health care provider. Always use a towel to avoid direct contact with your skin. Contact a health care provider if: You develop white spots on your skin. This may give your skin a blotchy or mottled look. Your skin turns blue or pale. Your skin becomes waxy or hard. Your swelling gets worse. Summary Cold therapy, or cryotherapy, is used to treat an injury or medical condition. It includes using cold packs or ice packs to reduce pain and swelling. Cold therapy is not safe if you are unable to express pain or have certain conditions. When using cold packs or ice packs, always place a towel between the cold source and your skin. Check your skin after 5 minutes of icing it to make sure that there is no skin damage or other signs of problems. Contact a health care provider if you notice changes in your skin or your swelling gets worse. This information is not intended to replace advice given to you by your health care provider. Make sure you discuss any questions you have with your health care provider. Document Released: 11/04/2011 Document Revised: 12/07/2018 Document Reviewed: 12/07/2018 [employer] Patient Education 2020 [employer]. 09/13/2021 16:33:05 How to Use a Knee Brace How to Use a Knee Brace A knee brace is a device that you wear to support your knee, especially if you have arthritis or the knee is healing after an injury or surgery. There are several types of knee braces. Some are designed to prevent an injury (prophylactic brace). These are often worn during sports. Others support an injured knee (functional brace) or keep it still while it heals (rehabilitative brace). People withsevere arthritis of the knee may benefit from a brace that takes some pressure off the knee (hr manager brace). Most knee braces are made from a combination of cloth and metal or plastic. You may need to wear a knee brace: To relieve knee pain. To help your knee support your weight (improve stability). To help you walk farther, or to move more easily (improve mobility). To prevent injury. To support your knee while it heals from surgery or from an injury. What are the risks? Generally, knee braces are safe to wear. However, problems may occur, including: Skin irritation that may cause pain and lead to infection. Making your condition worse if you wear the brace in the wrong way. How to use a knee brace Different braces will have different instructions for use. Your health care provider will tell you or show you: How to put on your brace. How to adjust the brace. When and how often to wear the brace. How to remove the brace. If you need any assistive devices in addition to the brace, such as crutches or a cane. In general, your brace should: Have the hinge of the brace line up with the bend of your knee. Have straps, hooks, or tapes that fasten snugly around your leg. Not feel too tight or too loose. How to care for a knee brace Check your brace often for signs of damage, such as loose connections or attachments. Your knee brace may get damaged or wear out during normal use. Wash the fabric parts of your brace with soap and water. Read the insert that comes with your brace for other specific care instructions. Contact a health care provider if your knee brace: Is too loose or too tight and you cannot adjust it. Causes pain, skin redness, swelling, bruising, or irritation. Is not helping to relieve your problem. Is making your knee pain worse. Summary A knee brace is a device that you wear to support your knee, especially if you have arthritis or your knee is healing after an injury or surgery. Different braces will have different instructions for use. Your health care provider will tell you or show you how to use your knee brace. Check your brace often for signs of damage, such as loose connections or attachments. Your knee brace may get damaged or wear out during normal use. Wear your knee brace as told by your health care provider. Contact a health care provider if your knee brace is not helping to relieve your problem or is making your knee pain worse. This information is not intended to replace advice given to you by your health care provider. Make sure you discuss any questions you have with your health care provider. Document Released: 05/30/2004 Document Revised: 09/23/2018 Document Reviewed: 09/23/2018 [employer] Patient Education 2020 [employer] Follow Up Care 09/13/2021 09:27:32 With:Yandy Anand CNP Address: When: only if needed [facility] 06-02-2022 Hospital Discharge instructions Patient Education 08/23/2021 12:17:19 Managing Anxiety, Adult Managing Anxiety, Adult After being diagnosed with an anxiety disorder, you may be relieved to know why you have felt or behaved a certain way. You may also feel overwhelmed about the treatment ahead and what it will mean for your life. With care and support, you can manage this condition and recover from it. How to manage lifestyle changes Managing stress and anxiety Stress is your body's reaction to life changes and events, both good and bad. Most stress will lastjust a few hours, but stress can be ongoing and can lead to more than just stress. Although stress can play a major role in anxiety, it is not the same as anxiety. Stress is usually caused by something external, such as a deadline, test, or competition. Stress normally passes after the triggering event has ended. Anxiety is caused by something internal, such as imagining a terrible outcome or worrying that something will go wrong that will devastate you. Anxiety often does not go away even after the triggering event is over, and it can become long-term (chronic) worry. It is important to understand the differences between stress and anxiety and to manage your stress effectively so that it does not lead marah anxious response. Talk with your health care provider or a counselor to learn more about reducing anxiety and stress.He or she may suggest tension reduction techniques, such as: Music therapy. This can include creating or listening to music that you enjoy and that inspires you. Mindfulness-based meditation. This involves being aware of your normal breaths while not trying to control your breathing. It can be done while sitting or walking. Centering prayer. This involves focusing on a word, phrase, or sacred image that means something toyou and brings you peace. Deep breathing. To do this, expand your stomach and inhale slowly through your nose. Hold your breath for 3 5 seconds. Then exhale slowly, letting your stomach muscles relax. Self-talk. This involves identifying thought patterns that lead to anxiety reactions and changing those patterns. Muscle relaxation. This involves tensing muscles and then relaxing them. Choose a tension reduction technique that suits your lifestyle and personality. These techniques take time and practice. Set aside 5 15 minutes a day to do them. Therapists can offer counseling and training in these techniques. The training to help with anxiety may be covered by some insurance plans. Other things you can do to manage stress and anxiety include: Keeping a stress/anxiety diary. This can help you learn what triggers your reaction and then learn ways to manage your response. Thinking about how you react to certain situations. You may not be able to control everything, but you can control your response. Making time for activities that help you relax and not feeling guilty about spending your time in this way. Visual imagery and yoga can help you stay calm and relax. Medicines Medicines can help ease symptoms. Medicines for anxiety include: Anti-anxiety drugs. Antidepressants. Medicines are often used as a primary treatment for anxiety disorder. Medicines will be prescribed by a health care provider. When used together, medicines, psychotherapy, and tension reduction techniques may be the most effective treatment. Relationships Relationships can play a big part in helping you recover. Try to spend more time connecting with trusted friends and family members. Consider going to couples counseling, taking family education classes, or going to family therapy. Therapy can help you and others better understand your condition. How to recognize changes in your anxiety Everyone responds differently to treatment for anxiety. Recovery from anxiety happens when symptomsdecrease and stop interfering with your daily activities at home or work. This may mean that you will start to: Have better concentration and focus. Worry will interfere less in your daily thinking. Sleep better. Be less irritable. Have more energy. Have improved memory. It is important to recognize when your condition is getting worse. Contact your health care provider if your symptoms interfere with home or work and you feel like your condition is not improving. Follow these instructions at home: Activity Exercise. Most adults should do the following: ?Exercise for at least 150 minutes each week. The exercise should increase your heart rate and makeyou sweat (moderate-intensity exercise). ?Strengthening exercises at least twice a week. Get the right amount and quality of sleep. Most adults need 7 9 hours of sleep each night. Lifestyle Eat a healthy diet that includes plenty of vegetables, fruits, whole grains, low-fat dairy products, and lean protein. Do not eat a lot of foods that are high in solid fats, added sugars, or salt. Make choices that simplify your life. Do not use any products that contain nicotine or tobacco, such as cigarettes, e- cigarettes, and chewing tobacco. If you need help quitting, ask your health care provider. Avoid caffeine, alcohol, and certain oztj-kis-tfuxrbo cold medicines. These may make you feel worse. Ask your pharmacist which medicines to avoid. General instructions Take nmnr-hgf-ufmmqkb and prescription medicines only as told by your health care provider. Keep all follow-up visits as told by your health care provider. This is important. Where to find support You can get help and support from these sources: Self-help groups. Online and community organizations. A trusted spiritual leader. Couples counseling. Family education classes. Family therapy. Where to find more information You may find that joining a support group helps you deal with your anxiety. The following sources can help you locate counselors or support groups near you: Mental Health [place]: www.mentalhealthamerica.net Anxiety and Depression Association of [place] (ADAA): www.adaa.org National [place] on Mental Illness (STEFF): www.steff.org Contact a health care provider if you: Have a hard time staying focused or finishing daily tasks. Spend many hours a day feeling worried about everyday life. Become exhausted by worry. Start to have headaches, feel tense, or have nausea. Urinate more than normal. Have diarrhea. Get help right away if you have: A racing heart and shortness of breath. Thoughts of hurting yourself or others. If you ever feel like you may hurt yourself or others, or have thoughts about taking your own life,get help right away. You can go to your nearest emergency department or call: Your local emergency services (911 in the [place] A suicide crisis helpline, such as the National Suicide Prevention Lifeline at . Thisis open 24 hours a day. Summary Taking steps to learn and use tension reduction techniques can help calm you and help prevent triggering an anxiety reaction. When used together, medicines, psychotherapy, and tension reduction techniques may be the most effective treatment. Family, friends, and partners can play a big part in helping you recover from an anxiety disorder. This information is not intended to replace advice given to you by your health care provider. Make sure you discuss any questions you have with your health care provider. Document Released: 03/04/2017 Document Revised: 08/10/2019 Document Reviewed: 08/10/2019 [employer] Patient Education 2019 [employer]. Follow Up Care 08/22/2021 14:40:17 With:Anastasia GOMES CNP Address: [address] [id number]- When: only if needed [facility] Primary Care Evaluation + Plan note No data available for this section [facility] Evaluation + Plan note Future Appointments Appointment Date:09/27/2021 02:00:00 PM Scheduled Provider:Elaine Mcfarland Location:[facility] Appointment Type:BH Therapy New Patient [facility] Evaluation + Plan note Future Appointments Appointment Date:11/22/2021 10:00:00 AM Scheduled Provider:Elaine Mcfarland Location:[facility] Appointment Type:BH Therapy [address] [facility] evaluation + Plan note Future Appointments Appointment Date:12/20/2021 11:00:00 AM Scheduled Provider:Elaine Mcfarland Location:[facility] Appointment Type:BH Therapy [address] [facility] evaluation + Plan note Future Appointments Appointment Date:04/25/2023 02:30:00 PM Scheduled Provider:Pieter Ying MD [facility] App[facility] Type:Cardiology New Patient (FT) Diagnostic Tests Pending * PAP [id number] IG w[facility]flx [facility]ments Appointment Date:06/06/2023 01:15:00 PM Scheduled Provider:Pieter Ying MD [facility]iology [facility] (FT[facility] App[facility]ments Appointment Date:06/06/2023 01:15:00 PM Scheduled Provider:Pieter Ying MD [facility] App[facility] Type:Cardiology Follow Up (FT) Appointment Date:06/06/2023 03:00:00 PM Scheduled Provider: [facility] Hol[facility] Future App[facility]ments Appointment Date:06/13/2023 01:00:00 PM Scheduled Provider:Pieter Ying MD Location[facility] [place] Appointment Type:Cardiology Follow [facility] (FT[facility] [place] Other History general Narrative - Reported* Type Description Date Medical History Exercise-induced asthma Medical History History of heart murmur in child saucedo Medical History Lazy eye of left side Medical History Menstrual periods, abnormal Surgical History tonsillectomy Hospitalization History see above [facility] Other Hospital Discharge instructions No data available for this section [facility] progress note No data available for this section [facility] Summary Purpose Family History No Family History Records FoundNo Family History Records FoundNo Family History Records FoundNo Family History Records Found No data available for this section No data available for this section No data available for this section No data available for this section No data available for this section No Family History Records Found Advance Directives No Advanced Directives Records FoundNo Advanced Directives Records FoundNo Advanced Directives Records FoundNo Advanced Directives Records FoundNo Advanced Directives Records Found Additional Source Comments INFORMATION SOURCE (unrecogn ized section and content) DATE CREATED AUTHOR 09/17/2017 [facility] DATE CREATED AUTHOR AUTHOR'S ORGANIZ ATION 09/13/2021 [facility] DATE CREATED AUTHOR AUTHOR'S ORGANIZ ATION 12/01/2021 [facility] DATE CREATED AUTHOR AUTHOR'S ORGANIZ ATION 12/24/2021 [facility] DATE CREATED AUTHOR AUTHOR'S ORGANIZ ATION 10/12/2023 [facility] Care Team (unrecognized sect ion and content) Personnel Name: Anastasia GOMES CNP Address: [address] [employer] [address] Personnel Name: Anastasia GOMES CNP Address: [address] [place] [id number]- Personnel Name: Anastasia GOMES CNP Address: [address] [facility] [place] [id number]- Personnel Name: Cheng TESFAYEYandy Address: Address: [address], [address] [place] [id number] Personnel Name: Yandy Anand CNP Address: Address: [address] [facility], [address] [place] [id number] Personnel Name: NASIM CARLIN NATHALIE Dm Address: Address: [address] [place] [address] Personnel Name: Monique Navarro L Address: Address: [address] [place] [address]- Personnel Name: Iwonaab FONSECA Monique L Address: Address: [address] [place] [address]- Personnel Name: Iwonaab FONSECA Monique L Address: Address: [address] [place] [address]- Personnel Name: Iwonaab FONSECA Monique L Address: Address: [address] [place] [address]- Personnel Name: [employer]ona 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 This clinical summary was aggregated from multiple sources. Caution should be exercised in using it in the provision of clinical care. This summary normalizes information from multiple sources, and as a consequence, information in this document may materially change the coding, format and clinical context of patient data. In addition, data may be omitted in some cases. CLINICAL DECISIONS SHOULD BE BASED ON THE PRIMARY CLINICAL RECORDS. [facility]. provides no warranty or guarantee of the accuracy or completeness of information in this document.
--- NOTE | 2023-12-02 19:45 | XR_ITS ---
[facility] [place] [id number] Patient Name: NICOLE GALE MRN: [id number] date: 1995 Sex: F Assigned Patient Location: ER Current Patient Location: ED.MAIN Accession/Order Number: [id number] Exam Date: 12/02/2023 20:00 Report Date: 12/02/2023 20:22 At the request of: YVETTE CORRAL Procedure: XR finger RT min 2V EXAM: XR finger RT min 2V HISTORY: finger injury COMPARISON: None. TECHNIQUE: 3 views of the right thumb FINDINGS: No acute fracture seen. Joint alignment is normal. Joint spaces are preserved. Soft tissues appear unremarkable. XR/XR finger RT min 2V IMPRESSION: No acute fracture or malalignment. Electronically authenticated by: NAYANA ESQUEDA Date: 12/02/2023 20:22
[2023-12-02] MEDS: ADACEL DIPH,PERTUSS(ACELL),TET VAC/PF 0.5 ML ADULT SYRINGE IM (19:48)
--- NOTE | 2023-12-02 20:14 | ED.GENADUL1 ---
HPI HPI - General Adult General Chief complaint: Wound/Laceration Stated complaint: Upper Injury Time Seen by Provider: 12/02/23 19:20 Source: patient Mode of arrival: walk-in History of Present Illness HPI narrative: Male presents here with a chief complaint of an injury to the right thumb. She actually get the thumb caught in a door while at work. Patient has a 1 cm laceration across the distal tip of the right thumb. She states she had to pull her thumb out of the hinge of the door. Small amount of bleeding is noted. She is not up-to-date on tetanus immunization. The injury occurred just prior to arrival Related Data Home Medications ?Medication ?Instructions ?Recorded ?Confirmed No Known Home Medications 12/02/23 12/02/23 Allergies Allergy/AdvReac Type Severity Reaction Status Date / Time No Known Drug Allergies Allergy Verified 12/02/23 19:17 Opioid HPI Opioid Management Most Recent Opioid Data: No Data to Display Review of Systems ROS Narrative All Systems are negative except as noted/marked.All systems reviewed and otherwise negative PFSH PFSH Social History Little interest or pleasure in doing things: not at all Feeling down, depressed, or hopeless: not at all Exam Narrative Exam Narrative: Nurses note and vital signs reviewed and patient is not hypoxic. General: The patient appears well and in no apparent distress. Patient is resting comfortably on cart. Skin: Warm, dry, no pallor noted. There is no rash noted. Head: Normocephalic, atraumatic Eye: Normal conjunctiva, no drainage, EOMI. PERRL Ears, Nose, Mouth, and Throat: oral mucosa is moist. Nares patent. Mouth without vesicles. Ear canals patent. Tm's without Erythema Musculoskeletal: Abdomen: Right distal thumb 1 cm in length, no foreign body noted, full range of motion, nailbed intact remedies are unremarkable Neurological: A&O x4, normal speech Psychiatric: Cooperative Constitutional Vital Signs, click to edit/add: Last Vital Signs Temp 97.6 F 12/02/23 19:17 Pulse 80 12/02/23 19:17 Resp 16 12/02/23 19:17 BP 137/92 H 12/02/23 19:17 Pulse Ox 99 12/02/23 19:17 O2 Del Method Room Air 12/02/23 19:17 Course Vital Signs Vital signs: Vital Signs Temperature 97.6 F 12/02/23 19:17 Pulse Rate 80 12/02/23 19:17 Respiratory Rate 16 12/02/23 19:17 Blood Pressure 137/92 H 12/02/23 19:17 Pulse Oximetry 99 12/02/23 19:17 Oxygen Delivery Method Room Air 12/02/23 19:17 Temperature 97.6 F 12/02/23 19:17 Pulse Rate 80 12/02/23 19:17 Respiratory Rate 16 12/02/23 19:17 Blood Pressure 137/92 H 12/02/23 19:17 Pulse Oximetry 99 12/02/23 19:17 Oxygen Delivery Method Room Air 12/02/23 19:17 Medical Decision Making MDM Narrative Medical decision making narrative: Patient presenting with superficial laceration to the distal thumb on the right hand. She is right-hand dominant. X-ray showed no acute deformity. Area was cleaned with Hibiclens normal saline. Tissue adhesive, Dermabond was used to seal the wound itself. Patient was updated on tetanus immunization. She will follow-up with occupational medicine. Patient had no questions at discharge. Dressing and thumb splint cover was placed by nursing staff extremity or signal maintenance technician for an affectation. Patient had no questions at discharge. She was given restrictions of no use of the right thumb. Differential Diagnosis Differential Diagnosis: , Laceration, tuft fracture, bruising Medical Records Medical records reviewed: Yes I reviewed the patient's medical records Lab Data Lab results reviewed: Yes I reviewed the patient's lab results Imaging Data finger: Attestation: I have reviewed the pertinent imaging results. My impression: neg, no fracture Radiologist's impression: ITS Impressions Finger X-Ray 12/02/23 19:45 IMPRESSION: No acute fracture or malalignment. Electronically authenticated by: NAYANA ESQUEDA Date: 12/02/2023 20:22 Discharge Plan Discharge Chief Complaint: Wound/Laceration Clinical Impression: Laceration, Crush injury Patient Disposition: Home, Self-Care Time of Disposition Decision: 20:12 Condition: Good Prescriptions / Home Meds: No Action No Known Home Medications Print Language: Croatian Instructions: Skin Adhesive Care (ED) Additional Instructions: follow up with occupational health [phone] Referrals: Physician,Non-Staff, MD [Primary Care Provider] - 1 week Discharge Date/Time: 12/02/23 20:34
[2023-12-02] MEDS: IBUPROFEN 600 MG TABLET PO (20:17)
== END 2023-12-02 20:34 | disposition home or self-care (01) ==
PROVIDERS: Emergency Provider Internal Medicine
DX: S67.01XA Crushing injury of right thumb, initial encounter (principal); S61.011A Laceration without foreign body of right thumb without damage to nail, initial encounter; W23.0XXA Caught, crushed, jammed, or pinched between moving objects, initial encounter; Z23 Encounter for immunization
CPT/HCPCS: 12001; 73140; 90471; 90715; 99284